=== PATIENT | male | born 1965 | race Caucasian/White ===

== ENCOUNTER → 2017-01-15 | Outpatient (CLI) | payer OTHER ==
[2017-01-15 10:48] LABS: Basophils # (A) 0.1 k/uL (0-0.2); Basophils % (A) 1 %; CH 32.2; CHCM 34.8; Eosinophils # (A) 0.2 k/uL (0-0.7); Eosinophils % (A) 2 %; HCT 46.5 % (39.0-53.0); HDW 2.85; HGB 15.9 gm/dL (13.0-17.5); Luc # (Auto) 0.17; Luc % (Auto) 2; Lymphocytes # (A) 1.7 k/uL (1.0-4.8); Lymphocytes % (A) 19 %; MCH 31.8 pg (25.0-35.0); MCHC 34.2 g/dL (31.0-37.0); MCV 93.1 fL (80.0-100.0); Mean Platelet Volume 7.6; Monocytes # (A) 0.5 k/uL (0-1.0); Monocytes % (A) 5 %; Neutrophils # (A) 6.7 k/uL (1.3-7.7); Neutrophils % (A) 72 %; RDW 13.6 % (11.5-15.5); WBC 9.3 k/uL (3.8-10.6); WBC (Perox) 9.17
[2017-01-15 11:11] LABS: ALT 57 U/L (21-72); AST 27 U/L (17-59); Alkaline Phosphatase 83 U/L (38-126); Anion Gap 8 mmol/L; Blood Urea Nitrogen 18 mg/dL (9-20); Calcium 9.5 mg/dL (8.4-10.2); Carbon Dioxide 30 mmol/L (22-30); Chloride 105 mmol/L (98-107); Cholesterol 149 mg/dL (<200); Glucose 103 mg/dL (74-99); HDL Cholesterol 40 mg/dL (40-60); Non-African American GFR(MDRD) >60 (>60 ml/min/1.73 sqM); Potassium 4.5 mmol/L (3.5-5.1); Sodium 143 mmol/L (137-145); Total Bilirubin 0.6 mg/dL (0.2-1.3); Total Protein 7.1 g/dL (6.3-8.2); Triglycerides 131 mg/dL (<150)
== END | disposition home or self-care (01) ==
LOC: LABWHC1 10:20
PROVIDERS: ATTEND Internal Medicine
DX: I25.10 Atherosclerotic heart disease of native coronary artery without angina pectoris (principal); E78.5 Hyperlipidemia, unspecified; I10 Essential (primary) hypertension
CPT/HCPCS: 36415; 80053; 80061; 84439; 84443; 85025

== ENCOUNTER 2017-08-11 14:20 | Inpatient (IN) | payer BC, OTHER ==
[2017-08-11] MEDS ORDERED: SODIUM CHLORIDE 0.9% 1,000 ML IV STA (14:28)
[2017-08-11] MEDS ORDERED: NITROGLYCERIN SL TABS 0.4 MG TAB SUBLINGUAL STA (14:28)
[2017-08-11] MEDS ORDERED: ASPIRIN 81 MG PO STA (14:28)
[2017-08-11] MEDS ORDERED: DILTIAZEM 125 MG in SODIUM CHLORIDE 0.9% 100 ML IV ONE (14:31)
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
[2017-08-11] MEDS ORDERED: HEPARIN SODIUM,PORCINE 5,000 UNIT/ML 1 ML VIAL IV ONE (14:32)
[2017-08-11] MEDS ORDERED: HEPARIN SODIUM,PORCINE/D5W PMX 25,000 UNIT in DEXTROSE/WATER 1 500ML.BAG IV SCH (14:45)
--- NOTE | 2017-08-11 15:01 | XR ---
EXAMINATION TYPE: XR chest 2V DATE OF EXAM: 08/11/2017 COMPARISON: 08/29/2016 HISTORY: Chest pain TECHNIQUE: Frontal and lateral views of the chest are obtained. FINDINGS: There is no heart failure nor confluent pneumonic infiltrate. Heart size is normal. There are chest leads. Costophrenic angles are clear. IMPRESSION: No active cardiopulmonary disease. No change.
[2017-08-11 15:11] LABS: Basophils # (A) 0.1 k/uL (0-0.2); Basophils % (A) 1 %; CH 31.6; CHCM 34.1; Eosinophils # (A) 0.1 k/uL (0-0.7); Eosinophils % (A) 2 %; HCT 53.2 % (39.0-53.0); HDW 2.65; HGB 17.4 gm/dL (13.0-17.5); Luc % (Auto) 4; Lymphocytes # (A) 2.2 k/uL (1.0-4.8); Lymphocytes % (A) 27 %; MCH 30.5 pg (25.0-35.0); MCHC 32.8 g/dL (31.0-37.0); MCV 93.3 fL (80.0-100.0); Mean Platelet Volume 8.3; Monocytes # (A) 0.6 k/uL (0-1.0); Monocytes % (A) 7 %; Neutrophils # (A) 4.9 k/uL (1.3-7.7); Neutrophils % (A) 60 %; RDW 14.4 % (11.5-15.5); WBC 8.1 k/uL (3.8-10.6)
[2017-08-11 15:25] LABS: INR 1.1 (<1.2); Partial Thromboplastin Time 24.5 sec (22.0-30.0); Prothrombin Time 10.8 sec (9.0-12.0)
[2017-08-11 15:29] LABS: ALT 51 U/L (21-72); AST 28 U/L (17-59); Alkaline Phosphatase 96 U/L (38-126); Anion Gap 12 mmol/L; Blood Urea Nitrogen 18 mg/dL (9-20); Carbon Dioxide 27 mmol/L (22-30); Chloride 101 mmol/L (98-107); Glucose 116 mg/dL (74-99); Magnesium 1.8 mg/dL (1.6-2.3); Non-African American GFR(MDRD) >60 (>60 ml/min/1.73 sqM); Potassium 4.4 mmol/L (3.5-5.1); Sodium 140 mmol/L (137-145); Total Bilirubin 0.7 mg/dL (0.2-1.3); Total Protein 7.8 g/dL (6.3-8.2)
[2017-08-11 15:31] LABS: Creatine Kinase 50 U/L (55-170)
[2017-08-11 15:44] LABS: Creatine Kinase MB 0.6 ng/mL (0.0-2.4); Troponin I <0.012 ng/mL (0.000-0.034)
[2017-08-11] MEDS ORDERED: NITROGLYCERIN SL TABS 0.4 MG TAB SUBLINGUAL PRN (16:19)
[2017-08-11] MEDS ORDERED: ALBUTEROL NEBULIZED 2.5 MG/3 ML INHALATION PRN (16:21)
[2017-08-11] MEDS: NITROGLYCERIN OINT 1 INCH/GM PACKET TOPICAL SCH ×3 (16:38→22:54)
[2017-08-11 18:03] VITALS: BMI 35.4
[2017-08-11] MEDS ORDERED: ACETAMINOPHEN TAB 500 MG TAB PO PRN (18:35)
[2017-08-11] MEDS ORDERED: HYDROcodone/APAP 5-325MG 1 EACH TAB PO PRN (18:35)
[2017-08-11] MEDS ORDERED: ALPRAZolam 0.25 MG TAB PO PRN (18:35)
[2017-08-11] MEDS: SODIUM CHLORIDE 0.9% 1,000 ML IV SCH (19:50)
[2017-08-11] MEDS: PANTOPRAZOLE 40 MG TABLET PO SCH (20:47)
[2017-08-11] MEDS: clonazePAM 0.5 MG TAB PO SCH (20:47)
[2017-08-11] MEDS: ISOSORBIDE MONONITRATE ER 30 MG TAB.ER.24H PO SCH (20:47)
[2017-08-11] MEDS: METOPROLOL TARTRATE 25 MG TAB PO SCH (20:48)
[2017-08-11] MEDS: MONTELUKAST 10 MG TAB PO SCH (20:48)
[2017-08-11] MEDS: LORATADINE 10 MG TAB PO SCH (20:48)
[2017-08-11] MEDS ORDERED: ASPIRIN 81 MG PO SCH (21:00)
[2017-08-11] MEDS ORDERED: CINNAMON 500 MG PO SCH (21:00)
[2017-08-11] MEDS ORDERED: KRILL OIL 300 MG PO SCH (21:00)
[2017-08-11] MEDS ORDERED: ATORVASTATIN 10 MG TAB PO SCH (21:00)
[2017-08-11] MEDS ORDERED: UBIDECARENONE 200 MG PO SCH (21:00)
[2017-08-11 21:49] LABS: Creatine Kinase 40 U/L (55-170)
[2017-08-11] MEDS ORDERED: HEPARIN SODIUM,PORCINE 5,000 UNIT/ML 1 ML VIAL IV PRN (21:57)
[2017-08-11 22:02] LABS: Creatine Kinase MB 0.5 ng/mL (0.0-2.4); Troponin I <0.012 ng/mL (0.000-0.034)
[2017-08-11] MEDS: TEMAZEPAM 15 MG CAP PO PRN (23:45)
[2017-08-12 04:07] LABS: Basophils # (A) 0.1 k/uL (0-0.2); Basophils % (A) 1 %; CHCM 33.1; Eosinophils # (A) 0.2 k/uL (0-0.7); Eosinophils % (A) 3 %; HDW 2.63; HGB 15.1 gm/dL (13.0-17.5); Luc # (Auto) 0.17; Luc % (Auto) 2; Lymphocytes # (A) 2.2 k/uL (1.0-4.8); Lymphocytes % (A) 30 %; MCH 30.7 pg (25.0-35.0); MCHC 31.6 g/dL (31.0-37.0); MCV 97.4 fL (80.0-100.0); Mean Platelet Volume 7.9; Monocytes # (A) 0.5 k/uL (0-1.0); Monocytes % (A) 7 %; Neutrophils # (A) 4.4 k/uL (1.3-7.7); Neutrophils % (A) 58 %; RBC 4.93 m/uL (4.30-5.90); RDW 14.6 % (11.5-15.5); WBC 7.5 k/uL (3.8-10.6); WBC (Perox) 7.76
[2017-08-12 04:27] LABS: Anion Gap 6 mmol/L; Blood Urea Nitrogen 15 mg/dL (9-20); Calcium 8.9 mg/dL (8.4-10.2); Carbon Dioxide 28 mmol/L (22-30); Chloride 105 mmol/L (98-107); Cholesterol 135 mg/dL (<200); Glucose 109 mg/dL (74-99); HDL Cholesterol 33 mg/dL (40-60); Non-African American GFR(MDRD) >60 (>60 ml/min/1.73 sqM); Potassium 4.3 mmol/L (3.5-5.1); Sodium 139 mmol/L (137-145)
[2017-08-12 04:30] LABS: Creatine Kinase 32 U/L (55-170)
[2017-08-12 04:44] LABS: Creatine Kinase MB 0.4 ng/mL (0.0-2.4); Troponin I <0.012 ng/mL (0.000-0.034)
[2017-08-12] MEDS: NITROGLYCERIN OINT 1 INCH/GM PACKET TOPICAL SCH ×4 (05:36→21:49)
[2017-08-12] MEDS: ASPIRIN 325 MG TAB PO SCH (08:46)
[2017-08-12] MEDS: METOPROLOL TARTRATE 25 MG TAB PO SCH ×2 (08:46→21:11)
[2017-08-12] MEDS: LISINOPRIL 20 MG TAB PO SCH (08:46)
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
[2017-08-12] MEDS: APIXABAN 5 MG TAB PO SCH ×2 (12:37→21:23)
--- NOTE | 2017-08-12 12:38 | CONS ---
CONSULTATION DATE OF SERVICE: 08/12/2017. HISTORY: Mr. Dm Martinez is a 52-year-old gentleman with a known history of CAD, who underwent stenting of LAD performed in 3 areas in 2012. He [address] Dr. Angeles in the outpatient setting. He saw him about a month ago, was scheduled to have an elective stress test some time in October. This gentleman is fairly active. He was about almost 45 minutes to an hour north yesterday when he experienced discomfort in the chest, which he first thought was a tingling feeling in the right shoulder area. Then he felt some left anterior chest discomfort and then had more of a numbness in his left upper extremity. With these symptoms he came into the hospital. He was also complaining of some headache and dizzy feeling. He was found to be in atrial fibrillation with a rapid ventricular rate. He was initiated on a Cardizem drip and with this he converted to sinus rhythm. He is now completely asymptomatic, has no symptoms. He is resting comfortably without symptoms. His troponins are normal. EKG revealed a sinus mechanism without acute changes, but initial EKG revealed atrial fib with moderate ventricular rate. The patient also additionally has bronchial asthma and underlying hypertension. He does not have any known prior history of atrial fibrillation. He is resting comfortably without symptoms at the time of my evaluation. PAST MEDICAL HISTORY: 1. CAD with stenting of LAD in 2012 with a patent vessel in 2013 based on a cardiac cath. 2. Hypertension. 3. Hypercholesterolemia. 4. Bronchial asthma. 5. No documented evidence of any CVA or any diabetes. ALLERGIES: None. MEDICATIONS: At home include: 1. Aspirin 81 mg daily. 2. Enalapril 5 mg b.i.d. 3. Imdur 30 mg daily. 4. Singulair 10 mg daily. 5. Simvastatin 20 mg daily. 6. Metoprolol tartrate 25 mg b.i.d. 7. Albuterol inhaler p.r.n. ALLERGIES: None. REVIEW OF SYSTEMS: Unremarkable other than above-mentioned facts, specifically does not have any hematemesis or melena. No fever with chills or cough with expectoration. IMPRESSION: 1. Paroxysmal atrial fibrillation, back in sinus rhythm. 2. History of coronary artery disease with previous percutaneous coronary intervention, presented with chest pain as well. 3. Hypertension. 4. Hyperlipidemia. 5. History of bronchial asthma. RECOMMENDATIONS: I am recommending that for his atrial fibrillation we place him on Eliquis 5 mg b.i.d. I will increase the Lipitor to from 10 to 20 mg daily. We will discontinue IV heparin, increase activity, and if he has no further symptoms I will perform a Lexiscan stress test tomorrow. Based on these findings, we can make further recommendations. I have advised the patient to increase activity and see how he does. We will resume all of his current home medications and increase the dose of atorvastatin from 10 to 20 mg daily. We will proceed with a Lexiscan stress test because he is unable to walk with his ankle issues. I discussed my thoughts in detail with the patient. Thank you very much for the consult. SHAZIA / FATOUMATA: [id number] /
--- NOTE | 2017-08-12 15:09 | PN ---
PROGRESS NOTE DATE OF SERVICE: 08/12/2017 This 52-year-old gentleman, admitted with chest pain and atrial ablation is in normal sinus rhythm. Cardiology is planning a stress test tomorrow. No chest pain. No palpitations. No fever. PHYSICAL EXAM: Alert and oriented x3. Pulse is 61, blood pressure 110/64, respiration 16, temperature 98.6, pulse ox 98% on room air. HEENT: Conjunctivae normal. Oral mucosa moist. Neck is no jugular venous distention. No carotid bruit. No lymph node enlargement. CARDIOVASCULAR: S1, S2. No S3, no S4. RESPIRATORY: Breath sounds diminished in the bases. No rhonchi. No crackles. ABDOMEN: Soft, nontender. LEGS: No edema. NERVOUS SYSTEM: No focal systems. LAB: CBC within normal limits. ABG noted. ASSESSMENT: 1. Chest pain, possible unstable angina. 2. Atrial fibrillation with fast ventricular rate converted to normal sinus rhythm. 3. History of asthma, chronic obstructive pulmonary disease. 4. History of Coronary artery disease and stent. 5. Hypertension. 6. Hyperlipidemia. 7. Gastroesophageal reflux disease. 8. History of degenerative joint disease, ankle. RECOMMENDATIONS AND DISCUSSION: In this 52-year-old gentleman who presented with multiple complex medical issues, we will monitor the patient closely. Continue the current management and symptomatic treatment. Continue with antiplatelet agents. Continue with Eliquis which has been initiated by Cardiology. Otherwise continue to monitor. Further recommendations to follow. MMODL / IJN: [id number] /
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
[2017-08-12] MEDS: SODIUM CHLORIDE 0.9% 1,000 ML IV SCH (20:55)
[2017-08-12] MEDS: ISOSORBIDE MONONITRATE ER 30 MG TAB.ER.24H PO SCH (21:11)
[2017-08-12] MEDS: ATORVASTATIN 20 MG TAB PO SCH (21:11)
[2017-08-12] MEDS: LORATADINE 10 MG TAB PO SCH (21:11)
[2017-08-12] MEDS: PANTOPRAZOLE 40 MG TABLET PO SCH (21:12)
[2017-08-12] MEDS: MONTELUKAST 10 MG TAB PO SCH (21:12)
[2017-08-12] MEDS: clonazePAM 0.5 MG TAB PO SCH (21:23)
[2017-08-12] MEDS: TEMAZEPAM 15 MG CAP PO PRN (22:25)
[2017-08-13] MEDS ORDERED: REGADENOSON 0.4 MG/5 ML SYRINGE IV ONE (07:00)
[2017-08-13] MEDS ORDERED: AMINOPHYLLINE 500 MG/20 ML VIAL IV PRN (07:00)
[2017-08-13] MEDS: ASPIRIN 325 MG TAB PO SCH (08:32)
[2017-08-13] MEDS: APIXABAN 5 MG TAB PO SCH ×2 (08:32→22:08)
[2017-08-13] MEDS: LISINOPRIL 20 MG TAB PO SCH (08:32)
[2017-08-13] MEDS: METOPROLOL TARTRATE 25 MG TAB PO SCH ×2 (08:32→22:13)
[2017-08-13] MEDS: NITROGLYCERIN OINT 1 INCH/GM PACKET TOPICAL SCH ×3 (11:48→23:36)
--- NOTE | 2017-08-13 12:33 | PN ---
PROGRESS NOTE Mr. Martinez presented yesterday with atrial fib, had a chest pain that was atypical, had negative troponins. I recommended that he should have a Lexiscan stress test since he could not walk and also initiated him on initiated him on Eliquis. However, apparently Dr. Rivas has seen him and he felt he should have a heart catheterization, but he did not communicate with me. The patient now wishes to have a cardiac cath and he wants to speak to Dr. Angeles. We will therefore feed him and we will not do the stress test at his request and I will await input from Dr. Angeles. He has not had any angina. EKG does not reveal any evidence of ischemia. He is resting comfortably without symptoms. MMODL / IJN: [id number] /
[2017-08-13] MEDS ORDERED: SODIUM CHLORIDE 0.9% 1,000 ML in EMPTY BAG 1 BAG IV ONE (13:16)
[2017-08-13] MEDS ORDERED: ASPIRIN 325 MG TAB PO STA (13:16)
[2017-08-13] MEDS ORDERED: ALPRAZolam 0.25 MG TAB PO PRN (13:16)
[2017-08-13] MEDS ORDERED: NITROGLYCERIN SL TABS 0.4 MG TAB SUBLINGUAL PRN (13:16)
[2017-08-13] MEDS ORDERED: ATORVASTATIN 20 MG TAB PO STA (13:16)
[2017-08-13] MEDS ORDERED: ALPRAZolam 0.5 MG TAB PO PRN (13:16)
[2017-08-13] MEDS: SODIUM CHLORIDE 0.9% 1,000 ML IV SCH (14:35)
--- NOTE | 2017-08-13 14:55 | PN ---
PROGRESS NOTE This is a 52-year-old male who has a history of coronary artery disease. The patient has history of coronary artery disease. The patient is status post stent x3. These were done by Dr. Angeles a few years back. He presents to the hospital with chest pain. He was driving and then developed substernal chest discomfort. It was getting worse as he continued to drive. It lasted about 40 minutes. It radiated to his left shoulder and left neck area. In the ER, he developed the palpitations. He also was noted to be in atrial fibrillation with RVR. His cardiac panel was negative. The patient is scheduled for cardiac catheterization tomorrow. The patient feels relatively comfortable today. No chest pain today as we speak. Current vital signs are reviewed. Temperature is 98, heart rate 68, respiratory 16, blood pressure 154/82, mean 99, room air saturation 97%. Appears no acute distress. HEENT examination is grossly unremarkable. Mucous membranes are moist. No oral lesions. Neck is supple. Full range of motion. No adenopathy or thyromegaly. Neck veins are flat. Cardiovascular examination reveals regular rhythm rate. S1, S2 normal. No S3, S4, or murmur. Lungs are relatively clear. Breath sounds equal. No masses or tenderness. Lungs are clear. Breath sounds equal. No wheezes, rhonchi, or crackles. Abdomen soft. Bowel sounds heard. No mass or tenderness. Extremities are intact. No cyanosis, clubbing, or edema. SKIN: Without rash. Neurologic examination is brief but nonfocal. LABORATORY DATA: Lab data is reviewed. CBC is normal. Electrolytes normal. ASSESSMENT: 1. Chest pain, rule out recurrent coronary disease. 2. History of coronary artery disease with previous stent placement. PLAN: Catheterization is planned for tomorrow. We will continue to follow. Medications, x- rays, labs are all reviewed. MMODL / IJN: [id number] /
--- NOTE | 2017-08-13 18:30 | PN ---
PROGRESS NOTE DATE OF SERVICE: 08/13/2017 This 52 -year-old gentleman admitted with chest pain. is being closely monitored. Myocardial infarction ruled out. Cardiology is planning cardiac cath tomorrow by Dr. Angeles. No chest pain. No palpitations. No fever. EXAM: Alert and oriented times three. Pulse 63, blood pressure 130/76 , respiratory rate 16, temperature 97.2, pulse ox 94% room air. HEENT: Conjunctivae normal. Neck: No jugular venous distention. CARDIOVASCULAR: S1, S2. Respiratory: Breath sounds diminished in the bases. No rhonchi and no crackles. Abdomen is soft, nontender. Legs are no edema, no swelling. Central nervous system: No focal deficits. LABORATORY DATA: Glucose 101. Other labs noted. ASSESSMENT: 1. Chest pain possible unstable angina. 2. Atrial fibrillation with fast ventricular rate, converted to normal sinus rhythm. 3. History of asthma, chronic obstructive pulmonary disease. 4. History of coronary artery disease, stent. 5. Hypertension. 6. Hyperlipidemia. 7. Gastroesophageal reflux disease. 8. Degenerative joint disease ankle. RECOMMENDATIONS AND DISCUSSION: Recommend to continue current medications, management and symptomatic treatment. Otherwise closely monitor. Follow closely with cardiology, possible cardiac catheterization. Further recommendations to follow. MMODL / IJN: [id number] /
[2017-08-13] MEDS: clonazePAM 0.5 MG TAB PO SCH (22:05)
[2017-08-13] MEDS: ATORVASTATIN 20 MG TAB PO SCH (22:05)
[2017-08-13] MEDS: ISOSORBIDE MONONITRATE ER 30 MG TAB.ER.24H PO SCH (22:06)
[2017-08-13] MEDS: MONTELUKAST 10 MG TAB PO SCH (22:06)
[2017-08-13] MEDS: LORATADINE 10 MG TAB PO SCH (22:06)
[2017-08-13] MEDS: PANTOPRAZOLE 40 MG TABLET PO SCH (22:06)
[2017-08-14 02:13] VITALS: RESP 18
[2017-08-14] MEDS: NITROGLYCERIN OINT 1 INCH/GM PACKET TOPICAL SCH ×2 (06:21→15:41)
[2017-08-14] MEDS: LISINOPRIL 20 MG TAB PO SCH (06:23)
[2017-08-14] MEDS: METOPROLOL TARTRATE 25 MG TAB PO SCH (06:23)
[2017-08-14] MEDS: ASPIRIN 325 MG TAB PO SCH (06:23)
[2017-08-14] MEDS: APIXABAN 5 MG TAB PO SCH (07:54)
[2017-08-14] MEDS ORDERED: SODIUM CHLORIDE 0.9% 1,000 ML IV ONE (12:28)
[2017-08-14] MEDS ORDERED: MIDAZOLAM 2 MG/2 ML VIAL IVP ONE (12:43)
--- NOTE | 2017-08-14 12:43 | PN ---
PROGRESS NOTE Mr. Martinez is doing well this morning. He has no chest pain. EKG was unremarkable. He is going to have a cardiac cath that will be performed by Dr. Angeles today. Vital signs are stable. S1 and S2 heard normally. Lungs are clear. Abdomen and lower extremity exam is unchanged. MMODL / IJN: [id number] /
[2017-08-14] MEDS ORDERED: LIDOCAINE 2% INJ 20 MG/ML SQ ONE (12:45)
[2017-08-14] MEDS ORDERED: VERAPAMIL SYRINGE (5 MG/10 ML) INTRAARTER ONE (12:47)
[2017-08-14] MEDS ORDERED: HEPARIN SODIUM 1,000 UN/ML (10ML VL) IV ONE ×2 (12:47→12:57)
[2017-08-14] MEDS ORDERED: HYDROmorphone 2 MG/ML 1 ML SYRINGE IVP ONE (12:48)
[2017-08-14] MEDS ORDERED: IOHEXOL 350 MG/ML 125ML BOTTLE INJ ONE (13:01)
[2017-08-14] MEDS ORDERED: RX INFO: IV CONTRAST WAS GIVEN 1 EACH MISC MISCELLANE PRN (13:07)
[2017-08-14] MEDS ORDERED: SODIUM CHLORIDE 0.9% 1,000 ML IV SCH (13:15)
--- NOTE | 2017-08-14 13:47 | LTR ---
August 14, 2017 RE: Dm Buenoley Dear Dr. Rivas: Mr. Dm Martinez underwent a heart catheterization and that revealed intermediate nonobstructive disease involving the mid RCA, which seems to be unchanged compared to before with patent stents in the LAD. Maximized medical treatment is recommended at this point of time. Thank you for allowing me to participate in his care. Please do not hesitate to call if you have any question or concern. Sincerely, MMOLGAL / IJN: [id number] /
--- NOTE | 2017-08-14 13:47 | CC ---
CARDIAC CATHETERIZATION REPORT DATE OF SERVICE: August 14, 2017 PERFORMING PHYSICIAN: Dwaine Angeles MD, automatic centrifugal station operator. PROCEDURE PERFORMED: Selective right and left coronary angiogram. INDICATION: This is a pleasant 52-year-old gentleman who is known to have coronary artery disease and prior stenting of the LAD, presented to the hospital complaining of chest discomfort subsequently followed by heart racing and fluttering and the patient was found to be in atrial fibrillation with RVR, which is was new onset AFib for him. He was experiencing chest discomfort before the episode. In view of his history of coronary artery disease, a heart catheterization was recommended. APPROACH: Right radial artery. COMPLICATION: None. LEVEL OF SEDATION: Moderate with sedation length of 21 minutes. PROCEDURE DESCRIPTION: After obtaining informed consent, the patient was brought to cardiac lab instructor. The right radial artery was cannulated using micropuncture technique, the micropuncture wire passed easily then I placed a 6-Guyanese sheath in the right radial artery. Subsequently I did give the patient 2 mg of verapamil IA and a total of 10,000 units of heparin IV. After that, I did selective right and left coronary angiogram using JR4 and JL3 0.5 catheters. The procedure was completed without any complication. SELECTIVE CORONARY ANGIOGRAM: 1. Right coronary artery is a large caliber vessel and it is a dominant vessel. The proximal RCA appeared to be angiographically normal. The mid RCA has a lesion appeared to be in the range of 50% and seems to be unchanged compared to before. The RCA distally appeared to have mild disease only and bifurcates into PDA and PLV branches. Both are angiographically normal. 2. The left main is angiographically normal. It bifurcates into the left circumflex and left anterior descending artery. 3. The left circumflex is a large caliber vessel and it is a nondominant vessel. The proximal left circumflex appeared to be angiographically normal and gives rise into a large first OM branch which has disease in the proximal portion about 50%. Also, the proximal left circumflex gives rise into a second OM branch which is small to medium caliber vessel and seems to be angiographically normal. The mid left circumflex is normal and gives rise into the 3rd OM branch which seems to be angiographically normal before the circumflex continues as a small-caliber vessel in the AV groove. 4. The left anterior descending artery: The proximal LAD has mild disease only and gives rise into a medium-sized diagonal branch which seems to be angiographically normal. The mid LAD is stented and the stent is patent. The mid LAD gives rise into another diagonal branch which seems to be angiographically normal. The LAD in the mid to distal portion is stented and the stent is patent as well. CONCLUSION: 1. Intermediate nonobstructive disease involving the mid RCA, seems to be unchanged compared to before. 2. Intermediate disease involving the left circumflex. 3. Patent stents in the left anterior descending artery. POSTPROCEDURE MANAGEMENT: 1. Maximize medical treatment. 2. Follow up with the patient. MMODL / IJN: [id number] /
--- NOTE | 2017-08-14 14:45 | P.PN ---
Subjective Progress Note Date: 08/14/17 Principal diagnosis: Unstable angina, A. fib with RVR induced by ischemia This is a 52-year-old white male whom I see on a regular basis in my office for underlying coronary artery disease, and patient is status post stents [address] Marie few years ago. His last stent was in 2012. His last cardiac catheterization was on 05/20/2014. This showed patent stents in the proximal mid and distal LAD, and there was moderate nonobstructive coronary artery disease involving the mid RCA as well as the proximal ramus intermedius. Yesterday, while driving, the patient developed sudden onset of substernal chest pain. His pain was gradually getting worse, and he continued to drive. His pain lasted for almost 40 minutes. However later on it became associated with radiation to the left shoulder and left neck area. And he felt that his left arm was numb. Patient drove himself to the ER while he was having chest pain. Upon arrival to the steps of the ER, patient developed palpitations. Upon initial evaluation, patient was noted to be in A. fib and RVR. His cardiac panel was negative, troponins/3 series were negative. Patient received Cardizem, and he was placed on Cardizem drip, heparin drip, admitted to the hospital, cardiology consultation was initiated, and I was asked to see him on consultation for his underlying history of bronchial asthma. His asthma is relatively stable at this point, no cough no wheezing no shortness of breath. Shortly after his rate was controlled, patient became pain-free. Presently during my evaluation, the patient is asymptomatic. Remains on Cardizem drip and heparin drip at this point. Patient was supposed to have a cardiac stress test in October as recommended by Dr. Marie. However considering the new symptoms, patient may have to be considered for cardiac catheterization again. That decision will be left to Dr. Marie to make. On 08/14/2017 patient is seen in follow-up on selective care, he is awaiting heart catheterization today. He is awake alert, in no acute distress. Heart cath revealed intermediate nonobstructive disease involving the mid RCA, unchanged from previous heart cath. Intermediate disease involving the left circumflex. Cardiology recommendation is to maximize medical treatment. Patient denies any chest pain, shortness of breath or palpitations. Lung sounds are clear, no rhonchi no wheezes, rales noted. He is on room air with O2 sat at 97%. He has been afebrile. He has been anticoagulated on Apixaban. Objective - Vital Signs Vital signs: Vital Signs Temp 97.6 F 08/14/17 08:00 Pulse 55 L 08/14/17 08:00 Resp 18 08/14/17 08:00 BP 116/65 08/14/17 08:00 Pulse Ox 97 08/14/17 08:00 Intake & Output 08/13/17 08/14/17 08/14/17 18:59 06:59 18:59 Intake Total 120 175 Output Total 500 Balance -380 175 Weight 111.7 kg Intake: IV 175 Oral 120 Output: Urine 500 Other: Voiding Method Toilet Toilet # Voids 2 2 # Bowel Movements 0 - Exam GENERAL EXAM: Alert, active, comfortable in no apparent distress. HEAD: Normocephalic/atraumatic. EYES: Normal reaction of pupils, equal size. Conjunctiva pink, sclera white. NOSE: Clear with pink turbinates. THROAT: No erythema or exudates. NECK: No masses, no JVD, no thyroid enlargement, no adenopathy. CHEST: No chest wall deformity. Symmetrical expansion. LUNGS: Equal air entry with no crackles, wheeze, rhonchi or dullness. CVS: Regular rate and rhythm, normal S1 and S2, no gallops, no murmurs, no rubs ABDOMEN: Soft, nontender. No hepatosplenomegaly, normal bowel sounds, no guarding or rigidity. EXTREMITIES: No clubbing, no edema, no cyanosis, 2+ pulses and upper and lower extremities. MUSCULOSKELETAL: Muscle strength and tone normal. SPINE: No scoliosis or deformity SKIN: No rashes CENTRAL NERVOUS SYSTEM: Alert and oriented -3. No focal deficits, tone is normal in all 4 extremities. PSYCHIATRIC: Alert and oriented -3. Appropriate affect. Intact judgment and insight. - Labs CBC & Chem 7: 08/12/17 03:46 08/12/17 03:46 Assessment and Plan Plan: Assessment and Plan Assessment: Impression: 1 unstable angina, patient will likely need further cardiac workup including a cardiac catheterization. Patient is known to have history of coronary artery disease and previous stent placement 3, last stent was placed in 2012, last cardiac catheterization was in 2013. Heart cath from 08/14/2017 showed intermediate nonobstructive disease involving the RCA and the left circumflex. The mid LAD stent was patent. Recommendation was made by cardiology to maximize medical treatment. 2 atrial fibrillation with RVR, likely induced by ischemia, or could be the other way around. That is the patient is having ischemic changes related to A. fib/RVR. 3 multiple medical problems including mild intermittent bronchial asthma which is presently stable, GERD without esophagitis, hyperlipidemia, hypertension, and history of prostate disorder. History of osteoarthritis and previous orthopedic surgeries done by Dr. Renee. Patient had right ankle and right knee surgeries. Recommendation: Patient underwent heart catheterization with Dr. Angeles which showed intermediate disease in the RCA and the left circumflex, the mid LAD stent was patent. Patient's medical treatment will be maximized. Possible discharge home tomorrow. I performed a history & physical examination of the patient and discussed their management with my nurse practitioner, Manisha Atkins. I reviewed the nurse practitioner's note and agree with the documented findings and plan of care. Lung sounds are clear. The findings and the impression was discussed with the patient. I attest to the documentation by the nurse practitioner. Time with Patient: Less than 30
[2017-08-14] MEDS: SODIUM CHLORIDE 0.9% 1,000 ML IV SCH (15:42)
--- NOTE | 2017-08-14 16:47 | P.DS ---
Providers Date of admission: 08/11/17 16:19 Attending physician: Alec Chaudhry Consults: 08/11/17 16:19 Consult Physician Urgent Consulting Provider: Cyril Boyer Consult Reason/Comments: Chest pain, new onset A. fib Do you want consulting provider notified?: Yes 08/11/17 16:59 Consult Physician Routine Consulting Provider: Ganesh Rivas Consult Reason/Comments: Chest pain, A. fib Do you want consulting provider notified?: Yes Primary care physician: Ganesh Rivas Hospital Course: Patient was admitted for chest pain, patient underwent cardiac original which did not show any significant coronary atherosclerotic occlusive disease that can be stented and patient is cleared for discharge and patient is being discharged today. Patient is on anticoagulations for atrial fibrillation which will be continued. PHYSICAL EXAMINATION: GENERAL: The patient is alert and oriented x3, not in any acute distress. Well developed, well nourished. HEENT: Pupils are round and equally reacting to light. EOMI. No scleral icterus. No conjunctival pallor. Normocephalic, atraumatic. No pharyngeal erythema. No thyromegaly. CARDIOVASCULAR: S1 and S2 present. No murmurs, rubs, or gallops. PULMONARY: Chest is clear to auscultation, no wheezing or crackles. ABDOMEN: Soft, nontender, nondistended, normoactive bowel sounds. No palpable organomegaly. MUSCULOSKELETAL: No joint swelling or deformity. EXTREMITIES: No cyanosis, clubbing, or pedal edema. NEUROLOGICAL: Gross neurological examination did not reveal any focal deficits. SKIN: No rashes. For all his rest of the chronic medical problems and management in the hospital please up at the progress note from Dr. Chaudhry from yesterday Patient Condition at Discharge: Stable Plan - Discharge Summary Discharge Rx Participant: No New Discharge Prescriptions: New Apixaban [Eliquis] 5 mg PO BID #60 tab Lisinopril [Zestril] 20 mg PO DAILY #30 tab Continue clonazePAM [KlonoPIN] 1.5 mg PO HS Simvastatin [Zocor] 20 mg PO HS Cetirizine HCl 10 mg PO HS Isosorbide Mononitrate [Imdur] 30 mg PO HS Metoprolol Tartrate [Lopressor] 25 mg PO BID Montelukast [Singulair] 10 mg PO HS Aspirin 81 mg PO HS Ubidecarenone [Coq-10] 200 mg PO BID Krill Oil 300 mg PO HS Cinnamon 500 mg PO BID Esomeprazole Magnesium [NexIUM] 20 mg PO HS Albuterol Inhaler [Ventolin Hfa Inhaler] 2 puff INHALATION RT-Q6H PRN PRN Reason: Shortness Of Breath Nitroglycerin Sl Tabs [Nitrostat] 0.4 mg PO Q5M PRN PRN Reason: Chest Pain Discontinued Enalapril [Vasotec] 5 mg PO BID Discharge Medication List Aspirin 81 mg PO HS 02/20/14 [History] Cetirizine HCl 10 mg PO HS 02/20/14 [History] Cinnamon 500 mg PO BID 02/20/14 [History] Isosorbide Mononitrate [Imdur] 30 mg PO HS 02/20/14 [History] Krill Oil 300 mg PO HS 02/20/14 [History] Metoprolol Tartrate [Lopressor] 25 mg PO BID 02/20/14 [History] Montelukast [Singulair] 10 mg PO HS 02/20/14 [History] Simvastatin [Zocor] 20 mg PO HS 02/20/14 [History] Ubidecarenone [Coq-10] 200 mg PO BID 02/20/14 [History] clonazePAM [KlonoPIN] 1.5 mg PO HS 02/20/14 [History] Esomeprazole Magnesium [NexIUM] 20 mg PO HS 05/19/14 [History] Albuterol Inhaler [Ventolin Hfa Inhaler] 2 puff INHALATION RT-Q6H PRN 04/24/16 [ History] Nitroglycerin Sl Tabs [Nitrostat] 0.4 mg PO Q5M PRN 04/24/16 [History] Apixaban [Eliquis] 5 mg PO BID #60 tab 08/13/17 [Rx] Lisinopril [Zestril] 20 mg PO DAILY #30 tab 08/13/17 [Rx] Follow up Appointment(s)/Referral(s): Ganesh Rivas MD [Primary Care Provider] - 3 Days Ambulatory/Diagnostic Orders: Complete Blood Count w/diff [LAB.AMB] Location: Determined By Patient Activity/Diet/Wound Care/Special Instructions: Stress test pending. Confirm final DC recommendations and Cardiology follow-up appointment prior to discharge.
[2017-08-14 18:31] VITALS: TEMP 97.4
[2017-08-14 18:34] VITALS: BP 122/71; PULSE 75
== END 2017-08-14 19:11 | disposition home or self-care (01) | DRG 287 ==
LOC: EC 14:20 → 6SEL 16:19
PROVIDERS: ADMIT Hospitalist; ATTEND Hospitalist
PROC: B2111ZZ Fluoroscopy of Multiple Coronary Arteries using Low Osmolar Contrast (ICD-10-PCS; 2017-08-14)
PROC: 4A023N7 Measurement of Cardiac Sampling and Pressure, Left Heart, Percutaneous Approach (ICD-10-PCS; principal; 2017-08-14 13:25)
DX: I25.110 Atherosclerotic heart disease of native coronary artery with unstable angina pectoris (principal); M50.20 Other cervical disc displacement, unspecified cervical region; I10 Essential (primary) hypertension; E78.5 Hyperlipidemia, unspecified; I48.0 Paroxysmal atrial fibrillation; J44.9 Chronic obstructive pulmonary disease, unspecified; K21.9 Gastro-esophageal reflux disease without esophagitis; M19.079 Primary osteoarthritis, unspecified ankle and foot; N42.9 Disorder of prostate, unspecified; J45.20 Mild intermittent asthma, uncomplicated; K57.90 Diverticulosis of intestine, part unspecified, without perforation or abscess without bleeding; K58.9 Irritable bowel syndrome, unspecified; L30.9 Dermatitis, unspecified; Z79.82 Long term (current) use of aspirin; Z79.899 Other long term (current) drug therapy; Z95.5 Presence of coronary angioplasty implant and graft; Z96.651 Presence of right artificial knee joint
CPT/HCPCS: 36415; 71020; 80048; 80053; 80061; 82550; 82553; 83735; 84443; 84484; 85025; 85379; 85610; 85730; 93005; 93458; 94760; 96365; 96366; 96368; 96376; 99291

== ENCOUNTER → 2018-01-08 | Outpatient (CLI) | payer BC ==
[2018-01-08 10:24] LABS: ALT 37 U/L (21-72); AST 24 U/L (17-59); Albumin 3.9 g/dL (3.5-5.0); Alkaline Phosphatase 64 U/L (38-126); Anion Gap 10 mmol/L; Blood Urea Nitrogen 15 mg/dL (9-20); Calcium 9.2 mg/dL (8.4-10.2); Carbon Dioxide 31 mmol/L (22-30); Chloride 103 mmol/L (98-107); Cholesterol 136 mg/dL (<200); Glucose 104 mg/dL (74-99); HDL Cholesterol 28 mg/dL (40-60); LDL Cholesterol,Calculated 77 mg/dL (0-99); Potassium 4.2 mmol/L (3.5-5.1); Sodium 144 mmol/L (137-145); Total Bilirubin 0.6 mg/dL (0.2-1.3); Total Protein 6.5 g/dL (6.3-8.2); Triglycerides 155 mg/dL (<150)
== END | disposition home or self-care (01) ==
LOC: LABWHC1 09:12
PROVIDERS: ATTEND Internal Medicine
DX: E78.5 Hyperlipidemia, unspecified (principal); I10 Essential (primary) hypertension
CPT/HCPCS: 36415; 80053; 80061

== ENCOUNTER 2018-04-26 08:15 | Emergency (ER) | payer BC ==
[2018-04-26 08:23] VITALS: RESP 18; TEMP 98.3
[2018-04-26] MEDS ORDERED: SODIUM CHLORIDE 0.9% 1,000 ML IV STA (08:32)
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
[2018-04-26 09:07] LABS: Appearance,Urine Clear (Clear); Bilirubin,Urine Negative (Negative); Blood,Urine Negative (Negative); Color,Urine Yellow; Glucose,Urine (UA) Negative (Negative); Ketones,Urine Negative (Negative); Leukocyte Esterase,Urine Negative (Negative); Nitrite,Urine Negative (Negative); Protein,Urine Negative (Negative); Specific Gravity,Urine 1.016 (1.001-1.035); Urobilinogen,Urine <2.0 mg/dL (<2.0)
[2018-04-26 09:09] LABS: Basophils % (A) 0 %; Eosinophils # (A) 0.1 k/uL (0-0.7); Eosinophils % (A) 1 %; HGB 14.5 gm/dL (13.0-17.5); Lymphocytes # (A) 1.3 k/uL (1.0-4.8); Lymphocytes % (A) 12 %; MCH 30.9 pg (25.0-35.0); MCHC 33.8 g/dL (31.0-37.0); MCV 91.3 fL (80.0-100.0); Mean Platelet Volume 7.8; Monocytes # (A) 0.7 k/uL (0-1.0); Monocytes % (A) 7 %; Neutrophils # (A) 8.4 k/uL (1.3-7.7); Neutrophils % (A) 78 %; Platelet Count 200 k/uL (150-450); RBC 4.71 m/uL (4.30-5.90); RDW 12.8 % (11.5-15.5); WBC 10.7 k/uL (3.8-10.6)
[2018-04-26 09:21] LABS: ALT 36 U/L (21-72); AST 20 U/L (17-59); Albumin 3.9 g/dL (3.5-5.0); Alkaline Phosphatase 55 U/L (38-126); Amylase 53 U/L (30-110); Anion Gap 8 mmol/L; Blood Urea Nitrogen 16 mg/dL (9-20); Carbon Dioxide 30 mmol/L (22-30); Chloride 99 mmol/L (98-107); Glucose 103 mg/dL (74-99); Lipase 75 U/L (23-300); Potassium 4.2 mmol/L (3.5-5.1); Sodium 137 mmol/L (137-145); Total Bilirubin 0.7 mg/dL (0.2-1.3); Total Protein 6.6 g/dL (6.3-8.2)
[2018-04-26 09:53] VITALS: BP 121/67; PULSE 68
[2018-04-26] MEDS ORDERED: ONDANSETRON 4 MG/2 ML VIAL IVP STA (09:54)
[2018-04-26] MEDS ORDERED: MORPHINE SULFATE 4 MG/ML SYRINGE IVP STA (09:54)
--- NOTE | 2018-04-26 10:16 | CT ---
EXAMINATION TYPE: CT abdomen pelvis w con DATE OF EXAM: 04/26/2018 COMPARISON: None HISTORY: Left lower quadrant pain CT DLP: 2390.2 mGycm Automated exposure control for dose reduction was used. TECHNIQUE: Helical acquisition of images was performed from the lung bases through the pelvis. CONTRAST: Performed without Oral Contrast and with IV Contrast, patient injected with 100 mL of Isovue 300. FINDINGS: LUNG BASES: No significant abnormality is appreciated. LIVER/GB: There is a solitary hypoattenuated 4 mm hepatic lesion on series 3 image 21. Otherwise the liver is grossly unremarkable. No cholelithiasis. PANCREAS: No significant abnormality is seen. SPLEEN: No significant abnormality is seen. ADRENALS: There is a 5 mm adrenal gland nodule that is low attenuated fitting diagnostic criteria of a lipid rich adenoma emanating from the lateral limb. Left adrenal gland is unremarkable. KIDNEYS: Wedge-shaped cortical scarring is seen of the right upper pole posteriorly. Otherwise the ki dneys enhance and excrete symmetrically. FREE AIR: No free air is visualized. ADENOPATHY: No greater than 1 cm short axis lymph nodes are seen within the abdomen or pelvis. REPRODUCTIVE ORGANS: Dystrophic central zone calcifications are seen within the nonenlarged prostate gland. URINARY BLADDER: No significant abnormality is seen. OSSEOUS STRUCTURES: Irregularity of the right iliac crest may relate to prior trauma. Nonspecific sc lerotic focus within the right pubic bone as subcentimeter. Minimal degenerative changes of the visua lized spine are noted. BOWEL: There is long segment bowel wall thickening surrounding multiple sigmoid diverticula with phl egmonous changes and fascial thickening. There is no evidence of free air or pericolonic abscess. No proximal dilatation to suggest reactive ileus or obstruction. Small bowel remains nondilated. Termina l ileum is unremarkable. OTHER: Mild calcific atheromatous changes are seen in the abdominal aorta and its branches. Abdominal aorta is of normal course and caliber. IMPRESSION: FINDINGS COMPATIBLE WITH ACUTE UNCOMPLICATED SIGMOID DIVERTICULITIS WITH NO PERICOLONIC FLUID COLLECT ION TO SUGGEST ABSCESS OR PNEUMOPERITONEUM.
== END 2018-04-26 10:50 | disposition home or self-care (01) ==
LOC: EC 08:15
DX: K57.32 Diverticulitis of large intestine without perforation or abscess without bleeding (principal); J44.9 Chronic obstructive pulmonary disease, unspecified; I25.119 Atherosclerotic heart disease of native coronary artery with unspecified angina pectoris; I10 Essential (primary) hypertension; E78.5 Hyperlipidemia, unspecified; Z96.651 Presence of right artificial knee joint; Z95.5 Presence of coronary angioplasty implant and graft; Z79.82 Long term (current) use of aspirin; Z79.899 Other long term (current) drug therapy
CPT/HCPCS: 36415; 80053; 82150; 83690; 85025; 81003; 74177; 99284; 96374; 96375; 96361; J2270; J2405; Q9967

== ENCOUNTER → 2018-08-27 | Outpatient (CLI) | payer BC ==
[2018-08-27 17:49] LABS: Appearance,Urine Clear (Clear); Basophils % (A) 1 %; Bilirubin,Urine Negative (Negative); Blood,Urine Negative (Negative); Color,Urine Yellow; Eosinophils # (A) 0.2 k/uL (0-0.7); Eosinophils % (A) 3 %; Glucose,Urine (UA) Negative (Negative); HCT 42.6 % (39.0-53.0); Ketones,Urine Negative (Negative); Leukocyte Esterase,Urine Negative (Negative); Lymphocytes # (A) 2.3 k/uL (1.0-4.8); Lymphocytes % (A) 34 %; MCH 32.2 pg (25.0-35.0); MCHC 35.3 g/dL (31.0-37.0); MCV 91.1 fL (80.0-100.0); Mean Platelet Volume 7.6; Monocytes # (A) 0.4 k/uL (0-1.0); Monocytes % (A) 6 %; Neutrophils # (A) 3.7 k/uL (1.3-7.7); Neutrophils % (A) 54 %; Nitrite,Urine Negative (Negative); PH, Urine 5.5 (5.0-8.0); Platelet Count 184 k/uL (150-450); Protein,Urine Negative (Negative); RBC 4.68 m/uL (4.30-5.90); RDW 13.1 % (11.5-15.5); Urobilinogen,Urine <2.0 mg/dL (<2.0); WBC 6.8 k/uL (3.8-10.6)
[2018-08-27 19:01] LABS: Erythrocyte Sedimentation Rate 12 mm/hr (0-15)
[2018-08-28 03:40] LABS: Parathyroid Hormone Intact 62.9 pg/mL (14.0-72.0)
[2018-08-28 04:45] LABS: Protein, Total 6.4 g/dL (6.2-8.2); Rheumatoid Factor 8 IU/mL (0-15); Streptolysin O Ab(ASO) 51 IU/mL (0-200)
[2018-08-28 04:54] LABS: Albumin 4.3 g/dL (3.80-4.90); Albumin/Globulin Ratio 2.05 (1.20-2.10); Anion Gap 7.2 mmol/L (4.00-12.00); C Reactive Protein 1.4 mg/dL (0.0-0.8); Calcium 9.5 mg/dL (8.7-10.3); Carbon Dioxide 28.8 mmol/L (21.6-31.8); Cyclic Citrullinated Pep IgG NEGATIVE (NEGATIVE); Globulin 2.1 g/dL (2.1-3.7); Phosphorus 4.1 mg/dL (2.4-5.1); Potassium 4.1 mmol/L (3.5-5.5); Total Bilirubin 0.3 mg/dL (0.3-1.2); Total Protein 6.4 g/dL (6.2-8.2); Uric Acid 6.1 mg/dL (3.7-8.7); Vitamin D 25 Hydroxy 11.3 ng/mL (30.0-100.0)
[2018-08-28 13:05] LABS: Gamma Globulin 0.86 g/dL (0.70-1.50)
[2018-08-28 21:16] LABS: Hemoglobin A1C 5.3 % (4.0-6.0)
[2018-08-29 04:30] LABS: Angiotensin-1 Converting Enz. 10 U/L (8-52)
[2018-08-29 11:28] LABS: HLA B27 NEGATIVE
[2018-08-29 13:54] LABS: Hepatits C Virus RNA Not detected (Not detected); Hepatits C Virus RNA, Quant <12 IU/mL (<12); LOG HCV IU/mL <1.08 (<1.08)
== END | disposition home or self-care (01) ==
LOC: LABWHC1 16:56
PROVIDERS: ATTEND Physical Medicine & Rehabilitation
DX: E78.5 Hyperlipidemia, unspecified (principal); I11.9 Hypertensive heart disease without heart failure; M51.36 Other intervertebral disc degeneration, lumbar region; M47.817 Spondylosis without myelopathy or radiculopathy, lumbosacral region; M50.122 Cervical disc disorder at C5-C6 level with radiculopathy; M70.61 Trochanteric bursitis, right hip; M47.22 Other spondylosis with radiculopathy, cervical region; Z79.01 Long term (current) use of anticoagulants
CPT/HCPCS: 36415; 80053; 81003; 82164; 82306; 82310; 82550; 82553; 82607; 82652; 83036; 83516; 83615; 83970; 84100; 84165; 84207; 84425; 84439; 84443; 84550; 85025; 85652; 86038; 86060; 86140; 86200; 86235; 86431; 86618; 86812; 87522

== ENCOUNTER → 2018-09-05 | Outpatient (CLI) | payer BC ==
--- NOTE | 2018-09-05 09:02 | MR ---
EXAMINATION TYPE: MR lumbar spine wo con DATE OF EXAM: 09/05/2018 COMPARISON: NONE HISTORY: Low back pain TECHNIQUE: T1 and T2 axial and sagittal images of the lumbar spine are submitted. FINDINGS: There is no abnormal signal seen within the visualized spinal cord or paraspinal soft tissu es. At L1-2 there is no disc herniation or canal stenosis. No foraminal encroachment. At L2-3 there is no disc herniation or canal stenosis. No foraminal encroachment. At L3-4 there is no disc herniation or canal stenosis. No foraminal encroachment. Mild hypertrophy of the facet joints. At L4-5 there is mild circumferential disc bulging. No foraminal encroachment or canal stenosis. No f ocal herniation. Mild degenerative disc disease noted. At L5-S1 there is loss of disc signal and space. There is advanced facet arthropathy particularly on the right with mild bilateral foraminal encroachment. There is a broad-based central disc bulging wit h mild effacement of thecal sac. IMPRESSION: 1. At L5-S1 there is mild degenerative disc disease. With advanced facet arthropathy particularly on the right results in mild bilateral foraminal encroachment. There is a broad-based central disc bulgi ng with mild effacement of thecal sac and borderline central stenosis. 2. Mild circumferential disc bulging L4-L5 with no canal stenosis or significant foraminal encroachme nt.
== END | disposition home or self-care (01) ==
LOC: RADMRIMAIN 08:06
PROVIDERS: ATTEND Physical Medicine & Rehabilitation
DX: M48.061 Spinal stenosis, lumbar region without neurogenic claudication (principal); M51.26 Other intervertebral disc displacement, lumbar region; M51.37 Other intervertebral disc degeneration, lumbosacral region; M46.96 Unspecified inflammatory spondylopathy, lumbar region; I11.9 Hypertensive heart disease without heart failure; E78.5 Hyperlipidemia, unspecified; Z79.01 Long term (current) use of anticoagulants
CPT/HCPCS: 72148

== ENCOUNTER → 2019-06-06 | Outpatient (CLI) | payer BC ==
[2019-06-06 11:19] LABS: Basophils # (A) 0.1 k/uL (0-0.2); Basophils % (A) 1 %; Eosinophils # (A) 0.2 k/uL (0-0.7); Eosinophils % (A) 2 %; HCT 46.6 % (39.0-53.0); HGB 15.8 gm/dL (13.0-17.5); Lymphocytes # (A) 2.2 k/uL (1.0-4.8); Lymphocytes % (A) 27 %; MCH 31.5 pg (25.0-35.0); MCV 92.8 fL (80.0-100.0); Mean Platelet Volume 8.2; Monocytes # (A) 0.5 k/uL (0-1.0); Monocytes % (A) 6 %; Neutrophils # (A) 5.1 k/uL (1.3-7.7); Neutrophils % (A) 61 %; Platelet Count 208 k/uL (150-450); RBC 5.02 m/uL (4.30-5.90); RDW 14.1 % (11.5-15.5); WBC 8.3 k/uL (3.8-10.6)
[2019-06-06 16:13] LABS: Albumin 4.4 g/dL (3.80-4.90); Albumin/Globulin Ratio 2.2 (1.60-3.17); Anion Gap 8.6 mmol/L (4.00-12.00); BUN/Creat Ratio 14.44 Ratio (12.00-20.00); Calcium 9.5 mg/dL (8.7-10.3); Carbon Dioxide 29.4 mmol/L (21.6-31.8); Chol/HDL Ratio 4.45; LDL Cholesterol,Calculated 101.2 mg/dL (0.0-131.0); Potassium 4.6 mmol/L (3.5-5.5); Total Bilirubin 0.5 mg/dL (0.2-1.2); Total Protein 6.4 g/dL (6.2-8.2); VLDL Calculation 36.8 mg/dL (5.00-40.00)
[2019-06-06 16:21] LABS: T4, Free (Free Thyroxine) 1.1 ng/dL (0.80-1.80)
== END | disposition home or self-care (01) ==
LOC: LABWHC1 10:36
PROVIDERS: ATTEND Internal Medicine
DX: Z00.00 Encounter for general adult medical examination without abnormal findings (principal); E78.5 Hyperlipidemia, unspecified; I10 Essential (primary) hypertension
CPT/HCPCS: 36415; 80053; 80061; 84153; 84439; 84443; 85025

== ENCOUNTER 2020-09-11 18:26 | Observation (INO) | payer OTHER ==
[2020-09-11] MEDS ORDERED: DILTIAZEM DRIP BOLUS FROM BAG 1 MG SOLN IV ONE ×3 (18:55→20:03)
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
[2020-09-11] MEDS: DILTIAZEM 125 MG in SODIUM CHLORIDE 0.9% 100 ML IV SCH (19:13)
--- NOTE | 2020-09-11 19:26 | XR ---
EXAMINATION TYPE: XR chest 2V DATE OF EXAM: 09/11/2020 COMPARISON: NONE HISTORY: Shortness of breath. TECHNIQUE: Frontal and lateral views of the chest are obtained. FINDINGS: There is no focal air space opacity, pleural effusion, or pneumothorax seen. The cardiac silhouette size is borderline enlarged. The osseous structures are intact. IMPRESSION: No acute cardiopulmonary process.
[2020-09-11 19:37] LABS: Basophils # (A) 0.1 k/uL (0-0.2); Basophils % (A) 1 %; Eosinophils # (A) 0.2 k/uL (0-0.7); Eosinophils % (A) 2 %; HCT 48.3 % (39.0-53.0); HGB 16.7 gm/dL (13.0-17.5); Lymphocytes # (A) 3.1 k/uL (1.0-4.8); Lymphocytes % (A) 29 %; MCH 31.5 pg (25.0-35.0); MCHC 34.5 g/dL (31.0-37.0); MCV 91.1 fL (80.0-100.0); Mean Platelet Volume 8.4; Monocytes # (A) 0.6 k/uL (0-1.0); Monocytes % (A) 5 %; Neutrophils # (A) 6.6 k/uL (1.3-7.7); Neutrophils % (A) 61 %; Platelet Count 299 k/uL (150-450); RDW 13.2 % (11.5-15.5); WBC 10.9 k/uL (3.8-10.6)
[2020-09-11 19:49] LABS: D-Dimer 0.31 mg/L FEU (<0.60); Partial Thromboplastin Time 25.2 sec (22.0-30.0); Prothrombin Time 10.8 sec (9.0-12.0)
[2020-09-11 20:06] LABS: Albumin 4.3 g/dL (3.5-5.0); Calcium 9.8 mg/dL (8.4-10.2); Magnesium 1.8 mg/dL (1.6-2.3); Potassium 4.9 mmol/L (3.5-5.1); Total Bilirubin 0.6 mg/dL (0.2-1.3); Total Protein 7.7 g/dL (6.3-8.2)
[2020-09-11] MEDS ORDERED: SODIUM CHLORIDE 0.9% 500 ML 500 ML IV ONE (20:08)
[2020-09-11] MEDS ORDERED: ACETAMINOPHEN TAB 325 MG TAB PO PRN (20:11)
[2020-09-11] MEDS ORDERED: NALOXONE 0.4 MG/ML 1 ML VIAL IV PRN (20:11)
[2020-09-11] MEDS ORDERED: ASPIRIN 81 MG PO SCH (21:00)
[2020-09-11] MEDS ORDERED: ATORVASTATIN 10 MG TAB PO SCH (21:00)
[2020-09-11] MEDS ORDERED: PANTOPRAZOLE 40 MG TABLET PO SCH (21:00)
[2020-09-11] MEDS ORDERED: MONTELUKAST 10 MG TAB PO SCH (21:00)
[2020-09-11] MEDS ORDERED: clonazePAM 0.5 MG TAB PO SCH (21:00)
[2020-09-11] MEDS ORDERED: ISOSORBIDE MONONITRATE ER 30 MG TAB.ER.24H PO SCH (21:00)
[2020-09-11] MEDS: APIXABAN 5 MG TAB PO SCH (21:46)
[2020-09-11] MEDS: METOPROLOL TARTRATE 25 MG TAB PO SCH (21:47)
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
[2020-09-12] MEDS ORDERED: IPRATROPIUM-ALBUTEROL 3 ML NEB INHALATION PRN (01:45)
[2020-09-12] MEDS: DILTIAZEM 125 MG in SODIUM CHLORIDE 0.9% 100 ML IV SCH (03:39)
[2020-09-12 03:41] VITALS: RESP 16
[2020-09-12] MEDS: METOPROLOL TARTRATE 25 MG TAB PO SCH (08:49)
[2020-09-12] MEDS: APIXABAN 5 MG TAB PO SCH (08:49)
[2020-09-12] MEDS ORDERED: lisinopriL 20 MG TAB PO SCH (09:00)
[2020-09-12 11:48] VITALS: BP 103/61; PULSE 62; TEMP 97.8
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
--- NOTE | 2020-09-12 15:07 | P.DS ---
Providers Date of admission: 09/11/20 20:11 Expected date of discharge: 09/12/20 Attending physician: Pavel Rea MD Consults: 09/11/20 20:12 Consult Physician Routine Consulting Provider: Gabriel Rodney Consult Reason/Comments: A flutter with 2:1 conduction Do you want consulting provider notified?: Yes Primary care physician: [facility] Course: 1. Atrial flutter with RVR 2. History of afib on eliquis 3. CAD 4. COPD without exacerbation 55 year old man with history of COPD, CAD, AFib/Flutter presented with palpitations, dyspnea, and diaphoresis and was found to be in RVR with atrial flutter. Patient was started on diltiazem gtt and quickly improved with HRs in the 60s. With controlled heart rates, his symptoms completely resolved. He was seen in consultation with cardiology, who agree that patient is stable to be discharged home. He will follow up with PCP and cardiology as needed. Assessment: Gen: awake, alert HEENT: normocephalic, atraumatic, good hearing acuity, moist mucous membranes Resp: good air exchange, breathing comfortably with no accessory muscle use CVS: good distal perfusion x 4, GI: soft, NTTP, ND : no SPT, no CVAT, alcantar catheter not present MSK: no pitting edema, no clubbing Neuro: non-focal, moving all extremities Psych: cooperative, euthymic mood Patient Condition at Discharge: Good Plan - Discharge Summary Discharge Rx Participant: No New Discharge Prescriptions: Continue clonazePAM [KlonoPIN] 0.75 mg PO HS Simvastatin [Zocor] 20 mg PO HS Cetirizine HCl 10 mg PO HS Isosorbide Mononitrate [Imdur] 30 mg PO HS Metoprolol Tartrate [Lopressor] 25 mg PO BID Montelukast [Singulair] 10 mg PO HS Aspirin 81 mg PO HS Esomeprazole Magnesium [NexIUM] 20 mg PO HS Apixaban [Eliquis] 5 mg PO BID #60 tab lisinopriL [Prinivil] 20 mg PO HS DULoxetine HCL [Cymbalta] 60 mg PO HS Discharge Medication List Aspirin 81 mg PO HS 02/20/14 [History] Cetirizine HCl 10 mg PO HS 02/20/14 [History] Isosorbide Mononitrate [Imdur] 30 mg PO HS 02/20/14 [History] Metoprolol Tartrate [Lopressor] 25 mg PO BID 02/20/14 [History] Montelukast [Singulair] 10 mg PO HS 02/20/14 [History] Simvastatin [Zocor] 20 mg PO HS 02/20/14 [History] clonazePAM [KlonoPIN] 0.75 mg PO HS 02/20/14 [History] Esomeprazole Magnesium [NexIUM] 20 mg PO HS 05/19/14 [History] Apixaban [Eliquis] 5 mg PO BID #60 tab 08/13/17 [Rx] DULoxetine HCL [Cymbalta] 60 mg PO HS 09/11/20 [History] lisinopriL [Prinivil] 20 mg PO HS 09/11/20 [History] Follow up Appointment(s)/Referral(s): Ganesh Rivas MD [Primary Care Provider] - 1-2 days Dwaine Angeles MD [Family Provider] - 2 Weeks Patient Instructions/Handouts: A-fib (Atrial Fibrillation) (ED)
[2020-09-12] MEDS ORDERED: DULoxetine HCL 60 MG CAPSULE.DR PO SCH (21:00)
== END 2020-09-12 15:45 | disposition home or self-care (01) ==
LOC: EC 18:26 → 3SCARD 20:11 → INTOOBSV 20:11 → 3SCARD 21:39 → UNDODISIN 09-12 15:45
PROVIDERS: ADMIT Internal Medicine; ATTEND Internal Medicine
DX: I48.0 Paroxysmal atrial fibrillation (principal); I25.10 Atherosclerotic heart disease of native coronary artery without angina pectoris; J44.9 Chronic obstructive pulmonary disease, unspecified; Z95.5 Presence of coronary angioplasty implant and graft; K21.9 Gastro-esophageal reflux disease without esophagitis; E78.5 Hyperlipidemia, unspecified; I10 Essential (primary) hypertension; N42.9 Disorder of prostate, unspecified; K58.9 Irritable bowel syndrome, unspecified; Z96.653 Presence of artificial knee joint, bilateral; Z98.890 Other specified postprocedural states; Z80.9 Family history of malignant neoplasm, unspecified; I25.2 Old myocardial infarction; Z79.01 Long term (current) use of anticoagulants; Z79.82 Long term (current) use of aspirin; Z79.899 Other long term (current) drug therapy
CPT/HCPCS: 96366 ×3; 93005 ×2; 96376; 96365; 99291; 36415; 85379; 83880; 80053; 83735; 84484 ×2; 85025; 85610; 85730; 71046; G0378 ×2

== ENCOUNTER → 2021-03-08 | Outpatient (CLI) | payer OTHER ==
[2021-03-08 14:26] LABS: African American GFR (CKD) >90 (>60 ml/min/1.73 sqM); Anion Gap 6 mmol/L; Blood Urea Nitrogen 13 mg/dL (9-20); Carbon Dioxide 31 mmol/L (22-30); Chloride 100 mmol/L (98-107); Non-African American GFR(CKD) 87 (>60 ml/min/1.73 sqM); Potassium 4.6 mmol/L (3.5-5.1); Sodium 137 mmol/L (137-145)
[2021-03-08 14:37] LABS: HCT 29.5 % (39.0-53.0); HGB 9.2 gm/dL (13.0-17.5); Hypochromasia Marked; MCH 23.6 pg (25.0-35.0); MCHC 31.3 g/dL (31.0-37.0); MCV 75.3 fL (80.0-100.0); Mean Platelet Volume 8.4; Microcytosis Slight; Platelet Count 288 k/uL (150-450); Poikilocytosis Moderate; RBC 3.92 m/uL (4.30-5.90); WBC 7.5 k/uL (3.8-10.6)
== END | disposition home or self-care (01) ==
LOC: LABPAT 13:22
PROVIDERS: ATTEND Internal Medicine Interventional Cardiology
DX: Z01.812 Encounter for preprocedural laboratory examination (principal); R07.9 Chest pain, unspecified
CPT/HCPCS: 36415; 80051; 82565; 84520; 85027

== ENCOUNTER → 2021-03-15 | Outpatient (CLI) | payer OTHER ==
[2021-03-15 19:23] LABS: Basophils # (A) 0.06 X 10*3/uL (0.00-0.10); Basophils % (A) 0.9 %; Eosinophils # (A) 0.15 X 10*3/uL (0.04-0.35); Eosinophils % (A) 2.1 %; HGB 8.9 g/dL (13.0-17.0); Lymphocytes # (A) 1.93 X 10*3/uL (0.90-5.00); Lymphocytes % (A) 27.5 %; MCH 22.4 pg (27.0-32.0); MCHC 27.8 g/dL (32.0-37.0); MCV 80.6 fL (80.0-97.0); Mean Platelet Volume 11.4 fL (9.5-12.2); Monocytes % (A) 8.5 %; Neutrophils # (A) 4.26 X 10*3/uL (1.80-7.70); Neutrophils % (A) 60.6 %; Platelet Count 316 X 10*3/uL (140-440); RBC 3.97 X 10*6/uL (4.40-5.60); RDW 16.4 % (11.5-14.5); WBC 7.03 X 10*3/uL (4.50-10.00)
[2021-03-15 22:42] LABS: Folate, Serum 2.9 ng/mL
[2021-03-15 22:54] LABS: % Iron Saturation 67.61 (15.00-50.00); African American GFR (CKD) 96.4 (60.0-200.0); Albumin 4.3 g/dL (3.80-4.90); Albumin/Globulin Ratio 1.65 (1.60-3.17); Anion Gap 8.4 mmol/L (4.00-12.00); Calcium 8.8 mg/dL (8.7-10.3); Carbon Dioxide 26.6 mmol/L (21.6-31.8); Globulin 2.6 g/dL (1.6-3.3); Non-African American GFR(CKD) 83.2 (60.0-200.0); Potassium 4.5 mmol/L (3.5-5.5); Total Bilirubin 0.3 mg/dL (0.2-1.2); Total Protein 6.9 g/dL (6.2-8.2)
== END | disposition home or self-care (01) ==
LOC: LABWHC1 11:23
PROVIDERS: ATTEND Internal Medicine
DX: D64.9 Anemia, unspecified (principal); R53.1 Weakness
CPT/HCPCS: 36415; 80053; 82607; 82728; 82746; 83540; 83550; 85025

== ENCOUNTER 2021-03-18 11:23 | Day surgery (SDC) | payer OTHER ==
[2021-03-16 15:44] VITALS: BMI 43.7
[~2021-03-18 11:23] MED LIST: LACTATED RINGERS 1,000 ML IV SCH
[2021-03-18 12:29] VITALS: RESP 16; TEMP 97.7
[2021-03-18] MEDS ORDERED: LIDOCAINE 1% (10MG/ML) FOR IV START INTRADERMA ONE (12:34)
[2021-03-18] MEDS ORDERED: LIDOCAINE 1% INJ 10MG/ML (20 ML MDV) ONE (13:08)
[2021-03-18] MEDS ORDERED: PROPOFOL 10 MG/ML 20 ML VIAL IV ONE (13:08)
--- NOTE | 2021-03-18 13:35 | P.PCN ---
Date of Procedure: 03/18/21 Procedure(s) Performed: Brief history: Patient is a pleasant 55-year-old white female scheduled for an elective upper endoscopy as well as colonoscopy as a part of evaluation of Iron deficiency anemia. He has history of A. fib and is Eliquis which is on hold for 2 days Procedure performed: Esophagogastroduodenoscopy biopsy Colonoscopy with biopsy and tattooing with Estela ink Preoperative diagnosis: iron deficiency anemia Anesthesia: [facility] Procedure: After informed consent was obtained from the patient was brought into the endoscopy unit and IV sedation was administered by anesthesia under continuous monitoring. Initially upper endoscopy was done. The Olympus GF 160 video endoscope was inserted inserted into the mouth and esophagus intubated without any difficulty and was gradually advanced into the stomach and duodenum and carefully examined. The bulb and second part of the duodenum appeared normal. biopsies were done from the duodenum to rule out celiac disease. The scope was then withdrawn into the stomach adequately insufflated with air and upon careful examination the antrum had mild nodular gastritis and biopsies were done from this area. The body, cardia and fundus appeared normal. The scope was then withdrawn into the esophagus. The GE junction was located at 40 cm to the incisors. It appeared regular with no erythema erosions or ulcerations. Rest of the esophagus appeared normal. Patient tolerated the procedure well. At this time the patient continued to remain sedation. Initial digital rectal examination was normal. Olympus CF 160 video colonoscope was then inserted into the rectum and gradually advanced to the cecum without any difficulty. Careful examination was performed as the scope was gradually being withdrawn. The prep was excellent. The cecum, ascending colon, appeared normal. In the mid to distal transverse colon there was a 2-3 cm ulcerated mass at 65 cm from the anal verge which was biopsied. Tattooing was performed with Estela ink. The mucosa of the descending colon, sigmoid colon and rectum appeared normal. Retroflexion was performed in the rectum and no lesions were noted. Patient tolerated the procedure well. Impression: 1. Upper endoscopy revealed mild antral gastritis 2. Colonoscopy revealed a 2-3 cm ulcerated mass in the mid/distal transverse colon at 65 cm from the anal verge status post biopsies followed by tattooing with Estela ink Recommendations: Findings of this examination were discussed with the patient as well as his family. He was advised to follow with the biopsy results and be seen in office in 3-4 days. He'll be scheduled for CT of the abdomen and pelvis.
[2021-03-18 13:52] VITALS: BP 135/86; PULSE 79
== END 2021-03-18 14:55 | disposition home or self-care (01) ==
LOC: ORWHC2ENDO 11:23
PROVIDERS: ATTEND Internal Medicine Gastroenterology
DX: K29.50 Unspecified chronic gastritis without bleeding (principal); C18.4 Malignant neoplasm of transverse colon; D50.9 Iron deficiency anemia, unspecified; K21.9 Gastro-esophageal reflux disease without esophagitis; I25.10 Atherosclerotic heart disease of native coronary artery without angina pectoris; I10 Essential (primary) hypertension; I48.91 Unspecified atrial fibrillation; E78.5 Hyperlipidemia, unspecified; J44.9 Chronic obstructive pulmonary disease, unspecified; Z79.1 Long term (current) use of non-steroidal anti-inflammatories (NSAID); Z79.899 Other long term (current) drug therapy
CPT/HCPCS: 88305; 45380; 43239; 45381; J2001; J2704; 44404

== ENCOUNTER → 2021-03-29 | Outpatient (CLI) | payer OTHER ==
--- NOTE | 2021-03-30 15:47 | CT ---
EXAMINATION TYPE: CT abdomen pelvis w con DATE OF EXAM: 03/29/2021 COMPARISON: 04/26/2018 INDICATION: mass in transverse colon DLP: 2646.5 mGycm, Automated exposure control for dose reduction was used. CONTRAST: 100 mL of Isovue 300. Study performed with Oral Contrast TECHNIQUE: Axial images were obtained from above the diaphragm to the pubic rami in the axial plane a t 5 mm thick sections. Reconstructed images are reviewed on the computer in the coronal plane. FINDINGS: Limited CT sections are obtained the lung bases. The lung bases are clear. CT ABDOMEN: Liver: There is moderate fatty saturation to the liver. Spleen: Normal Pancreas: Normal Adrenal glands: The adrenal glands are normal. Gallbladder: Normal Kidneys: No masses are evident. No hydronephrosis is present. No cysts are present. Delayed images were obtained through the kidneys, which remain unremarkable. Aorta: Vascular calcification is within the aorta. Inferior vena cava: Normal. CT PELVIS: No clear mass within the transverse colon is identified. Loops of bowel within the abdomen and pelvis are normal. There are loops of bowel which are incom pletely distended or lack oral contrast limiting their evaluation. Appendix: Not visualized. No dilated tubular structure inflammatory changes are evident. Urinary bladder: Normal. Genitourinary structures: Prostate contains calcification Osseous structures: There are some scattered sclerotic areas within the right pubic ramus and right f emoral head. Bone islands and sclerotic metastasis should be considered. There is a punctate chronic area of the medial right iliac wing. A sclerotic areas within the region of T10. IMPRESSIONS: 1. Discrete transverse colon mass is not identified. Consider colonoscopy or barium enema is additio nal evaluation is required. 2. There are a few scattered small sclerotic areas within the osseous structures most likely are bone islands. Sclerotic metastasis are not excluded. 3. Moderate fatty infiltration within the liver.
== END | disposition home or self-care (01) ==
LOC: RADCTMAIN 17:26
PROVIDERS: ATTEND Internal Medicine Gastroenterology
DX: K76.0 Fatty (change of) liver, not elsewhere classified (principal)
CPT/HCPCS: 74177; Q9967

== ENCOUNTER → 2021-04-13 | Outpatient (CLI) | payer OTHER ==
[2021-04-13 16:55] LABS: Anisocytosis Moderate; Hypochromasia Moderate; MCH 26.7 pg (25.0-35.0); MCHC 31.5 g/dL (31.0-37.0); Mean Platelet Volume 8.3; Microcytosis Slight; Platelet Count 221 k/uL (150-450); RDW 22.3 % (11.5-15.5); WBC 6.5 k/uL (3.8-10.6)
[2021-04-13 17:00] LABS: HGB 12.3 gm/dL (13.0-17.5); MCV 84.8 fL (80.0-100.0); Potassium 4.1 mmol/L (3.5-5.1)
== END | disposition home or self-care (01) ==
LOC: LABPAT 15:59
PROVIDERS: ATTEND Surgery
DX: Z01.812 Encounter for preprocedural laboratory examination (principal); C18.9 Malignant neoplasm of colon, unspecified; R94.31 Abnormal electrocardiogram [ECG] [EKG]
CPT/HCPCS: 36415; 80051; 85027

== ENCOUNTER 2021-04-15 09:21 | Inpatient (IN) | payer OTHER ==
[2021-04-13 15:02] VITALS: BMI 43.4
[~2021-04-15 09:21] MED LIST changes: +ACETAMINOPHEN TAB 500 MG TAB PO PRN; +ALVIMOPAN 12 MG CAPSULE PO PRN; +DEXAMETHASONE SOD PHOSPHATE 4 MG/ML 1 ML VIAL IV ONE; +HEPARIN SODIUM,PORCINE/PF 5,000 UNIT/0.5 ML SYRINGE SQ PRN; -LACTATED RINGERS 1,000 ML IV SCH; +LIDOCAINE 1% (10MG/ML) FOR IV START INTRADERMA PRN; +ONDANSETRON 4 MG/2 ML VIAL IVP ONE; +SCOPOLAMINE 1.5MG/72HR PATCH TRANSDERM ONE; +ceFAZolin 3 GM in SODIUM CHLORIDE 0.9% 100 ML IVPB PRN; +metroNIDAZOLE-NS PMX 500 MG in SALINE 1 100ML.BAG IVPB PRN
[2021-04-15] MEDS: LACTATED RINGERS 1,000 ML IV SCH ×2 (09:37→09:53)
[2021-04-15] MEDS ORDERED: MIDAZOLAM 2 MG/2 ML VIAL IVP ONE (11:10)
[2021-04-15] MEDS ORDERED: SUCCINYLCHOLINE CHLORIDE 100 MG/5 ML SYR IV ONE (12:35)
[2021-04-15] MEDS ORDERED: ePHEDrine SULFATE/0.9% NACL/PF 50 MG/5 ML SYRINGE IV ONE (12:35)
[2021-04-15] MEDS ORDERED: LIDOCAINE 1% INJ 10MG/ML (20 ML MDV) ONE (12:35)
[2021-04-15] MEDS ORDERED: PHENYLEPHRINE-0.9% NACL SYG 1,000 MCG/10 ML SYRINGE ONE (12:35)
[2021-04-15] MEDS ORDERED: PROPOFOL 10 MG/ML 20 ML VIAL IV ONE (12:35)
[2021-04-15] MEDS ORDERED: MIDAZOLAM 2 MG/2 ML VIAL ONE (12:35)
[2021-04-15] MEDS ORDERED: VASOPRESSIN 20 UNIT/ML 1 ML VIAL ONE (12:35)
[2021-04-15] MEDS ORDERED: HYDROmorphone (PF) 1 MG/ML ONE (12:35)
[2021-04-15] MEDS ORDERED: fentaNYL (PF) 50 MCG/ML 2 ML AMP ONE (12:35)
[2021-04-15] MEDS ORDERED: SODIUM CHLORIDE 0.9% (PF) 10 ML VIAL ONE (12:35)
[2021-04-15] MEDS ORDERED: GLYCOPYRROLATE 0.2 MG/ML 2 ML VIAL ONE (12:35)
[2021-04-15] MEDS ORDERED: ALBUMIN HUMAN 5% (12.5gm) 250 ML BOTTLE IVPB ONE (12:35)
[2021-04-15] MEDS ORDERED: NEOSTIGMINE 1 MG/ML 10 ML VIAL ONE (12:35)
[2021-04-15] MEDS ORDERED: ROPIVACAINE 5 MG/ML 30 ML VIAL ONE (12:35)
[2021-04-15] MEDS ORDERED: ROCURONIUM 10 MG/ML (5 ML VIAL) IV ONE (12:35)
--- NOTE | 2021-04-15 12:35 | P.ANPRN ---
Procedure Note - Anesthesia - Nerve Block Performed Bilateral Erector Spinae Time Out Performed: Yes (:) Date of Procedure: 04/15/21 Procedure Start Time: Procedure Stop Time: Location of Patient: PreOp Indication: Acute Post-Operative Pain, Requested by Surgeon (Dr Preston) Sedation Type: Sedate with meaningful contact maintained Preparation: Sterile Prep Position: Prone Catheter: None Needle Types: Pajunk Needle Gauge: 21 Ultrasound used to visualize needle placement: Yes Ultrasound used to observe medication spread: Yes Injectate: 0.5% Ropivacaine (see comment for volume) (15cc + 10cc PF normal saline each side) Blood Aspirated: No Pain Paresthesia on Injection Noted: No Resistance on Injection: Normal Image Stored and Saved: Yes Events: Uneventful and Well Tolerated
[2021-04-15] MEDS ORDERED: LACTATED RINGERS 1,000 ML IV ONE ×2 (14:21→16:51)
[2021-04-15] MEDS ORDERED: BENZOCAINE/MENTHOL LOZENG 1 EACH LOZENGE MUCOUS MEM PRN (15:27)
[2021-04-15] MEDS ORDERED: METOCLOPRAMIDE 5 MG/ML 2 ML VIAL IVP PRN (15:27)
[2021-04-15] MEDS ORDERED: ONDANSETRON 4 MG/2 ML VIAL IVP PRN (15:27)
--- NOTE | 2021-04-15 15:40 | P.OP ---
Date of Procedure: 04/15/21 Procedure(s) Performed: PREOPERATIVE DIAGNOSIS: Transverse colon cancer POSTOPERATIVE DIAGNOSIS: Same PROCEDURE: Partial colectomy, incidental appendectomy, partial omentectomy SURGEON: Kary EBL: 75 ML ANESTHESIA: General COMPLICATIONS: None OPERATIVE PROCEDURE: Placement placed in the operating table in the supine position. The patient was placed under general anesthesia. Abdomen was then prepped and draped sterilely. Midline incision made using the scalpel. Incision was kept to the supra umbilical location. Dissection through the subcutaneous tissues and fascia took place using electrocautery. Entrance into the peritoneal cavity occurred. Bookwalter retractor was utilized. The patient's colon had a tattoo sherwin in the mid transverse colon region. You could feel the mass at that location. No additional abnormalities were encountered in the small bowel or colon. The liver was palpated and no abnormalities were seen. The gastrocolic omentum was divided using the LigaSure. Us was taken all the way from the splenic flexure to the hepatic flexure. The hepatic flexure was fully mobilized. The patient had a very thin fibrinous appendix that was adherent to the right gutter. The appendix was excised using the LigaSure device and a silk stitch. Once we had adequate mobilization of the right side of the colon the bowel was divided proximal to the colonic mass. The bowel was then divided beyond that segment as well. The middle colic vasculature and associated lymphatics were included in our resection. I could not feel any abnormal lymph nodes throughout the mesentery. As we reached the proximal aspect of the middle colic vessel a small amount of venous bleeding was noted and controlled using 0 silk ties. Most of the mesentery was taken using a combination of 0 silk ties and the LigaSure device. The patient's omentum was extremely bulky and after mobilization of the transverse colon away from the omentum there were a few areas that appeared slightly ischemic. I decided to resect a portion of the omentum as well. At that time we had adequate length for the proximal and distal aspects of our resection to reach one another as a [id number] anastomosis. The antimesenteric portion of the staple line of both portions of colon was excised using electrocautery. The linear 75 stapler was fired along the antimesenteric border creating a [id number] anastomosis antiperistaltic. The defect was then closed using a TX 60 device. The TX 60 stapler line was imbricated using interrupted 3-0 GI silk sutures. A 3-0 GI silk crotch stitch was also placed. Again irrigation took place with no evidence of bleeding. The midline fascia was then reapproximated using 2 separate double-stranded looped PDS sutures. The subcutaneous tissues were closed using 3-0 Vicryl sutures. The skin was closed using genevieve. Sterile dressings were applied. At the end of this procedure the sponge needle and ensure counts were correct. DISPOSITION: Stable to recovery room
[2021-04-15] MEDS ORDERED: diphenhydrAMINE 50 MG/ML 1 ML VIAL ONE (15:48)
[2021-04-15] MEDS: HYDROmorphone 0.5 MG/0.5 ML SYRINGE IVP PRN ×2 (15:50→17:06)
[2021-04-15] MEDS ORDERED: diphenhydrAMINE 50 MG/ML 1 ML VIAL IVP ONE (15:51)
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
[2021-04-15] MEDS ORDERED: IPRATROPIUM-ALBUTEROL 3 ML NEB INHALATION PRN (16:29)
[2021-04-15] MEDS: HEPARIN SODIUM,PORCINE/PF 5,000 UNIT/0.5 ML SYRINGE SQ SCH (17:50)
[2021-04-15] MEDS: D5-0.45% NACL WITH KCL 20MEQ/L 1,000 ML IV SCH (17:50)
[2021-04-15] MEDS: IPRATROPIUM-ALBUTEROL 3 ML NEB INHALATION SCH (20:07)
[2021-04-15] MEDS: FAMOTIDINE 20 MG/2 ML VIAL IV SCH (21:11)
[2021-04-15] MEDS: lisinopriL 20 MG TAB PO SCH (21:11)
[2021-04-15] MEDS: HYDROmorphone 1 MG/ML 1 ML SYRINGE IVP PRN (21:12)
[2021-04-15] MEDS: ASPIRIN 81 MG PO SCH (21:13)
[2021-04-16] MEDS: HEPARIN SODIUM,PORCINE/PF 5,000 UNIT/0.5 ML SYRINGE SQ SCH ×3 (01:16→15:37)
[2021-04-16] MEDS: D5-0.45% NACL WITH KCL 20MEQ/L 1,000 ML IV SCH ×4 (01:18→20:47)
[2021-04-16] MEDS: HYDROmorphone 1 MG/ML 1 ML SYRINGE IVP PRN ×6 (02:12→22:23)
[2021-04-16] MEDS: LACTATED RINGERS 1,000 ML IV SCH ×2 (07:18→22:18)
[2021-04-16] MEDS: IPRATROPIUM-ALBUTEROL 3 ML NEB INHALATION SCH ×4 (07:21→20:15)
[2021-04-16] MEDS: ALVIMOPAN 12 MG CAPSULE PO SCH ×2 (08:33→20:47)
[2021-04-16] MEDS: METOPROLOL SUCCINATE (ER) 50 MG TAB.ER.24H PO SCH ×3 (08:33→20:47)
[2021-04-16] MEDS: FAMOTIDINE 20 MG/2 ML VIAL IV SCH ×2 (08:33→20:47)
[2021-04-16 08:56] LABS: African American GFR (CKD) 109.5 (60.0-200.0); Anion Gap 3.6 mmol/L (4.00-12.00); Calcium 9.2 mg/dL (8.7-10.3); Carbon Dioxide 31.4 mmol/L (21.6-31.8); Non-African American GFR(CKD) 94.5 (60.0-200.0); Potassium 4.8 mmol/L (3.5-5.5)
[2021-04-16 10:27] LABS: Basophils # (A) 0.03 X 10*3/uL (0.00-0.10); Basophils % (A) 0.2 %; Eosinophils # (A) 0 X 10*3/uL (0.04-0.35); Eosinophils % (A) 0 %; HCT 39.3 % (39.6-50.0); HGB 11.8 g/dL (13.0-17.0); Lymphocytes # (A) 1.35 X 10*3/uL (0.90-5.00); Lymphocytes % (A) 9.3 %; MCH 26.5 pg (27.0-32.0); MCV 88.1 fL (80.0-97.0); Mean Platelet Volume 10.8 fL (9.5-12.2); Monocytes # (A) 1.07 X 10*3/uL (0.20-1.00); Monocytes % (A) 7.4 %; Neutrophils % (A) 82.8 %; Platelet Count 278 X 10*3/uL (140-440); RBC 4.46 X 10*6/uL (4.40-5.60)
[2021-04-16 10:28] LABS: Anisocytosis (M) 2+
--- NOTE | 2021-04-16 11:41 | P.PN ---
Subjective Progress Note Date: 04/16/21 Principal diagnosis: Colonic mass, status post partial colectomy, incidental appendectomy partial omentectomy This is a 55-year-old white male with known history of multiple medical problems including coronary artery disease, previous stent placement in LAD with mild to moderate disease of the RCA, hypertension, mild intermittent asthma, dyslipidemia, paroxysmal atrial fibrillation, patient is status post PCI of the LAD in 2012. Patient normally follows up with me and with Dr. Marie. And recently the patient was found to have anemia. This was discovered on routine blood tests done by cardiology, and I recommended GI referral, patient underwent colonoscopy, and he was found to have a large mass in the transverse colon. Patient had previous colonoscopy in the last [address] Armenta for symptoms of colitis. And there was no evidence of polyps at the time. There is no family history of colon cancer. Patient was referred to Dr. rincon, and he underwent elective surgery today. Postoperatively I saw the patient in the recovery room, he was sedated and obtunded, I recommended placing the patient on BiPAP, and transferred from recovery eventually to regular medical floor. Patient was difficult to arouse, apparently he received some sedation in the form of Benadryl and Dilaudid because he was quite agitated shortly after he was extubated and transferred to recovery room. Could not get much history from the patient himself. But I am unaware of this patient, and I have seen him recently for preoperative clearance. I have also referred him to Dr. Marie who cleared the patient from the cardiac perspective The patient is seen today 04/16/2021 in follow-up on the regular medical floor. He is currently sitting up in a recliner. Awake and alert in no acute distress. Maintaining good O2 saturations in the 90s on room air. He's been afebrile. Hemodynamically stable. White count 14.5. Hemoglobin 11.8. Platelets 278. Sodium 134. Potassium 4.8. Creatinine 0.9. Glucose 189. He remains on DuoNeb inhalations, heparin for DVT prophylaxis, D5 W with half-normal saline and 20 mEq KCl at 125 ML's per hour. Dilaudid for pain control. He is working well with the incentive spirometer. Tolerating clear liquid diet. Objective - Vital Signs Vital signs: Vital Signs Temp 98.4 F 04/16/21 07:31 Pulse 79 07/17/21 08:31 Resp 17 04/16/21 08:31 BP 161/72 04/16/21 07:31 Pulse Ox 92 L 04/16/21 07:31 Intake & Output 04/15/21 04/16/21 04/16/21 18:59 06:59 18:59 Intake Total 2400 Output Total 450 575 Balance 1950 -575 Weight 135 kg Intake: IV 2400 Output: Urine 375 575 Estimated Blood Loss 75 - Exam GENERAL EXAM: Alert, active, pleasant 55-year-old gentleman, obese, on room air, fairly comfortable in no apparent distress. HEAD: Normocephalic. EYES: Normal reaction of pupils, equal size. NOSE: Clear with pink turbinates. THROAT: No erythema or exudates. NECK: No masses, no JVD. CHEST: No chest wall deformity. LUNGS: Equal air entry with no crackles, wheeze, rhonchi or dullness. CVS: S1 and S2 normal with no audible murmur, regular rhythm. ABDOMEN: Abdominal dressing dry and intact. Binder in place. Hypoactive bowel sounds, no guarding or rigidity. SPINE: No scoliosis or deformity SKIN: No rashes CENTRAL NERVOUS SYSTEM: No focal deficits, tone is normal in all 4 extremities. EXTREMITIES: There is no peripheral edema. No clubbing, no cyanosis. Peripheral pulses are intact. - Labs CBC & Chem 7: 04/16/21 05:17 04/16/21 05:17 Labs: Abnormal Lab Results - Last 24 Hours (Table) 04/16/21 04/16/21 Range/Units 05:17 05:17 WBC 14.50 H (4.50-10.00) X 10*3/uL Hgb 11.8 L (13.0-17.0) g/dL Hct 39.3 L (39.6-50.0) % MCH 26.5 L (27.0-32.0) pg MCHC 30.0 L (32.0-37.0) g/dL Immature Gran # 0.05 H (0.00-0.04) X 10*3/uL Neutrophils # 12.00 H (1.80-7.70) X 10*3/uL Monocytes # 1.07 H (0.20-1.00) X 10*3/uL Eosinophils # 0 L (0.04-0.35) X 10*3/uL Sodium 134 L (135-145) mmol/L Anion Gap 3.60 L (4.00-12.00) mmol/L BUN/Creatinine Ratio 10.00 L (12.00-20.00) Ratio Glucose 189 H (70-110) mg/dL Assessment and Plan Assessment: 1 Status post partial colectomy, incidental appendectomy, partial omentectomy, postoperative day #1. 2 Transverse colon cancer. 3 Anemia secondary to GI blood losses. 4 Coronary artery disease and previous stent placement. 5 Paroxysmal atrial fibrillation. 6 Benign essential hypertension. 7 Mild intermittent asthma. 8 Family history of coronary artery disease. 9 Dyslipidemia. 10 History of depression. 11 History of GERD without esophagitis. 12 Suspect underlying obstructive sleep apnea Plan: The patient was seen and evaluated by Dr. Evelyn Altamirano from the pulmonary standpoint Working well with the incentive spirometer Currently on room air Increase his activity as tolerated We will continue to follow I, the cosigning physician, performed a history & physical examination of the patient. Lungs sounds are clear. Maintaining good O2 saturations in the 90s on room air. I discussed the assessment and plan of care with my nurse practitioner, Shaina Torre. I attest to the above note as dictated by her.
--- NOTE | 2021-04-16 13:54 | P.PN ---
Subjective Progress Note Date: 04/16/21 CHIEF COMPLAINT: Transverse colon cancer HISTORY OF PRESENT ILLNESS: The patient is a 55-year-old gentleman status post transverse colon cancer. He had some bleeding. He reported feeling well until he had exertional activity prompting incisional pain. His pain is stable. ROS: No nausea or vomiting. No fevers or chills. No bowel movements or flatus. PHYSICAL EXAM: VITAL SIGNS: Reviewed CONSTITUTIONAL: Well developed and in no acute distress. EYES: Conjuctivae without sclera icterus. Extraocular movements grossly intact. HEAD, EARS, NOSE, THROAT: Moist buccal mucosa. Head is atraumatic, normocephalic. Hears conversational speech. No nasal drainage. NECK: No jugular venous distention. RESPIRATORY: Non-labored respirations and equal bilateral excursions. CARDIOVASCULAR: Palpable 2+ radial pulses. ABDOMEN: Dressed and intact. MUSCULOSKELETAL: No gross deformity of the lower extremities noted. No clubbing. No cyanosis. SKIN: Good skin turgor. Well perfused. NEUROLOGIC: Cranial nerves II through XII grossly intact. No focal or lateralizing signs. PSYCH: Appropriate affect. Alert and oriented to person, place and time. CLINICAL LABS: Reviewed. Hemoglobin stable 12.3-11.8. ASSESSMENT: 1. Transverse colon cancer PLAN: 1. Await bowel function 2. Prokinetic agent continued. 3. Pain management continue with the narcotic as needed Objective - Vital Signs Vital signs: Vital Signs Temp 98.4 F 04/16/21 07:31 Pulse 79 04/16/21 07:31 Resp 17 04/16/21 07:31 BP 161/72 04/16/21 07:31 Pulse Ox 92 L 04/16/21 07:31 Intake & Output 04/15/21 04/16/21 04/16/21 18:59 06:59 18:59 Intake Total 2400 Output Total 450 575 Balance 1950 -575 Weight 135 kg Intake: IV 2400 Output: Urine 375 575 Estimated Blood Loss 75 - Labs CBC & Chem 7: 04/16/21 05:17 04/16/21 05:17 Labs: Abnormal Lab Results - Last 24 Hours (Table) 04/16/21 Range/Units 05:17 Sodium 134 L (135-145) mmol/L Anion Gap 3.60 L (4.00-12.00) mmol/L BUN/Creatinine Ratio 10.00 L (12.00-20.00) Ratio Glucose 189 H (70-110) mg/dL
[2021-04-16] MEDS: lisinopriL 20 MG TAB PO SCH (20:47)
[2021-04-16] MEDS: ASPIRIN 81 MG PO SCH (20:47)
[2021-04-17] MEDS: HEPARIN SODIUM,PORCINE/PF 5,000 UNIT/0.5 ML SYRINGE SQ SCH ×4 (01:22→22:44)
[2021-04-17] MEDS: HYDROmorphone 1 MG/ML 1 ML SYRINGE IVP PRN ×8 (01:22→22:44)
[2021-04-17] MEDS: ALVIMOPAN 12 MG CAPSULE PO SCH ×2 (07:20→19:50)
[2021-04-17] MEDS: FAMOTIDINE 20 MG/2 ML VIAL IV SCH ×2 (07:20→19:51)
[2021-04-17] MEDS: METOPROLOL SUCCINATE (ER) 50 MG TAB.ER.24H PO SCH ×3 (07:20→19:51)
[2021-04-17] MEDS: IPRATROPIUM-ALBUTEROL 3 ML NEB INHALATION SCH ×4 (07:44→19:19)
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
--- NOTE | 2021-04-17 18:25 | P.PN ---
Subjective Progress Note Date: 04/17/21 CHIEF COMPLAINT: Transverse colon cancer HISTORY OF PRESENT ILLNESS: The patient is a 55-year-old gentleman status post transverse colon cancer. He denies flatus. Abdominal pain improved from yesterday. He is sitting in the chair. He had urinary retention yesterday. He reports bladder urgency today. He reports dark urine. Fluids decreased by his primary care provider. No flatus. No bowel movements. ROS: No nausea or vomiting. No fevers or chills. No bowel movements or flatus. PHYSICAL EXAM: VITAL SIGNS: Reviewed CONSTITUTIONAL: Well developed and in no acute distress. EYES: Conjuctivae without sclera icterus. Extraocular movements grossly intact. HEAD, EARS, NOSE, THROAT: Moist buccal mucosa. Head is atraumatic, normocephalic. Hears conversational speech. No nasal drainage. NECK: No jugular venous distention. RESPIRATORY: Non-labored respirations and equal bilateral excursions. CARDIOVASCULAR: Palpable 2+ radial pulses. ABDOMEN: Dressing intact. No peritonitis. MUSCULOSKELETAL: No gross deformity of the lower extremities noted. No clubbing. No cyanosis. SKIN: Good skin turgor. Well perfused. NEUROLOGIC: Cranial nerves II through XII grossly intact. No focal or l ateralizing signs. PSYCH: Appropriate affect. Alert and oriented to person, place and time. CLINICAL LABS: Reviewed. ASSESSMENT: 1. Transverse colon cancer 2. Urinary retention PLAN: 1. Await bowel function 2. May benefit from short trial of flomax to address urinary retention. Objective - Vital Signs Vital signs: Vital Signs Temp 98.1 F 04/17/21 13:58 Pulse 90 04/17/21 15:20 Resp 16 04/17/21 15:20 BP 133/82 04/17/21 13:58 Pulse Ox 91 L 04/17/21 13:58 Intake & Output 04/16/21 04/17/21 04/17/21 18:59 06:59 18:59 Output Total 200 Balance -200 Output: Urine 200 Other: # Voids 3 4 5 - Labs CBC & Chem 7: 04/16/21 05:17 04/16/21 05:17
[2021-04-17] MEDS: D5-0.45% NACL WITH KCL 20MEQ/L 1,000 ML IV SCH ×2 (19:18→19:19)
[2021-04-17] MEDS: ASPIRIN 81 MG PO SCH (19:51)
[2021-04-17] MEDS: lisinopriL 20 MG TAB PO SCH (19:51)
[2021-04-18] MEDS: HYDROmorphone 1 MG/ML 1 ML SYRINGE IVP PRN ×3 (01:47→09:00)
[2021-04-18] MEDS: LACTATED RINGERS 1,000 ML IV SCH (04:44)
[2021-04-18] MEDS: IPRATROPIUM-ALBUTEROL 3 ML NEB INHALATION SCH ×4 (07:09→20:57)
[2021-04-18] MEDS: ALVIMOPAN 12 MG CAPSULE PO SCH ×2 (08:55→20:03)
[2021-04-18] MEDS: METOPROLOL SUCCINATE (ER) 50 MG TAB.ER.24H PO SCH ×3 (08:55→20:03)
[2021-04-18] MEDS: HEPARIN SODIUM,PORCINE/PF 5,000 UNIT/0.5 ML SYRINGE SQ SCH ×2 (08:56→17:05)
[2021-04-18] MEDS: FAMOTIDINE 20 MG/2 ML VIAL IV SCH ×2 (08:56→20:03)
[2021-04-18 11:34] LABS: HCT 37.1 % (39.6-50.0); HGB 11.1 g/dL (13.0-17.0); MCH 26.1 pg (27.0-32.0); MCHC 29.9 g/dL (32.0-37.0); MCV 87.3 fL (80.0-97.0); Mean Platelet Volume 10.8 fL (9.5-12.2); Platelet Count 251 X 10*3/uL (140-440); RBC 4.25 X 10*6/uL (4.40-5.60); RDW 24.4 % (11.5-14.5); WBC 8.26 X 10*3/uL (4.50-10.00)
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
[2021-04-18 11:50] LABS: African American GFR (CKD) 114.9 (60.0-200.0); Blood Urea Nitrogen <5.0 mg/dL (9.0-27.0); Calcium 8.6 mg/dL (8.7-10.3); Carbon Dioxide 30.8 mmol/L (21.6-31.8); Chloride 97 mmol/L (96-109); Glucose 140 mg/dL (70-110); Non-African American GFR(CKD) 99.2 (60.0-200.0); Potassium 4.1 mmol/L (3.5-5.5); Sodium 136 mmol/L (135-145)
--- NOTE | 2021-04-18 11:52 | P.PN ---
Subjective Progress Note Date: 04/18/21 Principal diagnosis: Colon mass Patient doing well today. Tolerating clears. No flatus. He is afebrile. White blood cell count is now normal. Objective - Vital Signs Vital signs: Vital Signs Temp 97.6 F 04/18/21 07:46 Pulse 88 04/18/21 11:21 Resp 16 04/18/21 11:21 BP 147/83 04/18/21 07:46 Pulse Ox 93 L 04/18/21 07:46 Intake & Output 04/17/21 04/18/21 04/18/21 18:59 06:59 18:59 Intake Total 600 Balance 600 Intake: Oral 600 Other: # Voids 5 3 - Exam Abdomen: Soft, obese, dressing clean and dry, mild tenderness - Labs CBC & Chem 7: 04/18/21 06:26 04/18/21 06:26 Labs: Abnormal Lab Results - Last 24 Hours (Table) 04/18/21 04/18/21 Range/Units 06:26 06:26 RBC 4.25 L (4.40-5.60) X 10*6/uL Hgb 11.1 L (13.0-17.0) g/dL Hct 37.1 L (39.6-50.0) % MCH 26.1 L (27.0-32.0) pg MCHC 29.9 L (32.0-37.0) g/dL RDW 24.4 H (11.5-14.5) % BUN <5.0 L (9.0-27.0) mg/dL Glucose 140 H (70-110) mg/dL Calcium 8.6 L (8.7-10.3) mg/dL Assessment and Plan (1) Colon cancer Narrative/Plan: Patient seems to be gradually improving. Continue ambulation. Will increase diet. Add Toradol for pain control. Current Visit: Yes Status: Acute Code(s): C18.9 - MALIGNANT NEOPLASM OF COLON, UNSPECIFIED SNOMED Code(s): 743491838
[2021-04-18] MEDS: D5-0.45% NACL WITH KCL 20MEQ/L 1,000 ML IV SCH (12:24)
[2021-04-18] MEDS: KETOROLAC 15 MG/ML 1 ML VIAL IVP SCH ×2 (12:24→17:04)
[2021-04-18 12:32] LABS: Anisocytosis (M) 2+; Basophils # (A) 0.07 X 10*3/uL (0.00-0.10); Basophils % (A) 0.8 %; Eosinophils # (A) 0.26 X 10*3/uL (0.04-0.35); Eosinophils % (A) 3.1 %; Lymphocytes # (A) 1.73 X 10*3/uL (0.90-5.00); Lymphocytes % (A) 20.9 %; Monocytes # (A) 0.89 X 10*3/uL (0.20-1.00); Monocytes % (A) 10.8 %; Neutrophils # (A) 5.27 X 10*3/uL (1.80-7.70); Neutrophils % (A) 63.9 %
[2021-04-18] MEDS: ASPIRIN 81 MG PO SCH (20:03)
[2021-04-18] MEDS: lisinopriL 20 MG TAB PO SCH (20:03)
[2021-04-19] MEDS: KETOROLAC 15 MG/ML 1 ML VIAL IVP SCH ×5 (00:20→23:32)
[2021-04-19] MEDS: HEPARIN SODIUM,PORCINE/PF 5,000 UNIT/0.5 ML SYRINGE SQ SCH ×4 (00:20→23:32)
[2021-04-19] MEDS: LACTATED RINGERS 1,000 ML IV SCH (04:46)
[2021-04-19] MEDS: D5-0.45% NACL WITH KCL 20MEQ/L 1,000 ML IV SCH (05:17)
[2021-04-19] MEDS: IPRATROPIUM-ALBUTEROL 3 ML NEB INHALATION SCH ×4 (07:46→19:33)
[2021-04-19] MEDS: FAMOTIDINE 20 MG/2 ML VIAL IV SCH ×2 (07:50→21:37)
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
[2021-04-19] MEDS: METOPROLOL SUCCINATE (ER) 50 MG TAB.ER.24H PO SCH ×3 (10:16→21:36)
[2021-04-19] MEDS: ALVIMOPAN 12 MG CAPSULE PO SCH ×2 (10:16→21:37)
--- NOTE | 2021-04-19 11:43 | P.PN ---
Subjective Progress Note Date: 04/19/21 Principal diagnosis: Colon mass Patient doing well today. He had a bowel movement earlier. Minimal pain. He is afebrile. Objective - Vital Signs Vital signs: Vital Signs Temp 97.7 F 04/19/21 08:20 Pulse 76 04/19/21 11:28 Resp 16 04/19/21 08:20 BP 142/85 04/19/21 08:20 Pulse Ox 98 04/19/21 08:20 Intake & Output 04/18/21 04/19/21 04/19/21 18:59 06:59 18:59 Intake Total 300 1200 400 Balance 300 1200 400 Intake: Intake, IV Titration 600 400 Amount D5-0.45% NaCl with KCl 600 400 20Meq/l 1,000 ml @ 50 mls /hr IV .Q20H DELFIN Rx#: [id number] Oral 300 600 Other: # Voids 5 3 - Exam Abdomen: Soft, obese, dressing clean and dry, binder in place - Labs CBC & Chem 7: 04/18/21 06:26 04/18/21 06:26 Labs: Abnormal Lab Results - Last 24 Hours (Table) 04/18/21 Range/Units 06:26 BUN <5.0 L (9.0-27.0) mg/dL Glucose 140 H (70-110) mg/dL Calcium 8.6 L (8.7-10.3) mg/dL Assessment and Plan (1) Colon cancer Narrative/Plan: Patient doing well at this time. Will increase diet. Possible discharge tomorrow. Current Visit: Yes Status: Acute Code(s): C18.9 - MALIGNANT NEOPLASM OF COLON, UNSPECIFIED SNOMED Code(s): 653782135
[2021-04-19] MEDS: ASPIRIN 81 MG PO SCH (21:36)
[2021-04-19] MEDS: lisinopriL 20 MG TAB PO SCH (21:37)
[2021-04-20] MEDS: KETOROLAC 15 MG/ML 1 ML VIAL IVP SCH ×2 (05:53→11:39)
[2021-04-20] MEDS: LACTATED RINGERS 1,000 ML IV SCH (05:54)
[2021-04-20 06:58] VITALS: RESP 17
[2021-04-20] MEDS: IPRATROPIUM-ALBUTEROL 3 ML NEB INHALATION SCH ×2 (07:40→11:17)
[2021-04-20] MEDS: HEPARIN SODIUM,PORCINE/PF 5,000 UNIT/0.5 ML SYRINGE SQ SCH (07:45)
[2021-04-20] MEDS: ALVIMOPAN 12 MG CAPSULE PO SCH (09:06)
[2021-04-20] MEDS: METOPROLOL SUCCINATE (ER) 50 MG TAB.ER.24H PO SCH (09:06)
[2021-04-20] MEDS: FAMOTIDINE 20 MG/2 ML VIAL IV SCH (09:06)
[2021-04-20] MEDS ORDERED: HYDROcodone/APAP 5-325MG 1 EACH TAB PO PRN (10:08)
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
[2021-04-20 11:36] VITALS: BP 153/77; PULSE 68; TEMP 97.8
--- NOTE | 2021-04-20 13:30 | P.DS ---
Providers Date of admission: 04/15/21 09:21 Expected date of discharge: 04/20/21 Attending physician: Renny Preston Consults: 04/15/21 15:27 Consult Physician Routine Consulting Provider: Ganesh Rivas Consult Reason/Comments: Medical management Do you want consulting provider notified?: Yes Primary care physician: Ganesh Rivas Hospital Course: Discharge diagnosis 1. 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 He is status post Partial colectomy, incidental appendectomy, partial omentectomy. Patient tolerated surgery well. His pain is controlled. He is tolerating diet. He is up and ambulating. He is having bowel movements. He is afebrile. His incision site is clean dry and intact. He is stable for discharge. Please refer to chart for any further details. Physician Screw Machine Set Up Operator note has been reviewed by physician. Signing provider agrees with the documented findings, assessment, and plan of care. Patient Condition at Discharge: Stable Plan - Discharge Summary Discharge Rx Participant: Yes New Discharge Prescriptions: New HYDROcodone/APAP 5-325MG [[place] 5-325] 1 tab PO Q6HR PRN 3 Days #12 tab PRN Reason: Analgesia Continue clonazePAM [KlonoPIN] 0.75 mg PO HS Simvastatin [Zocor] 20 mg PO HS Cetirizine HCl 10 mg PO HS Montelukast [Singulair] 10 mg PO HS Aspirin 81 mg PO HS Esomeprazole Magnesium [NexIUM] 20 mg PO HS Apixaban [Eliquis] 5 mg PO BID #60 tab lisinopriL [Prinivil] 20 mg PO HS DULoxetine HCL [Cymbalta] 60 mg PO HS Metoprolol Succinate (ER) [Toprol XL] 50 mg PO TID Tadalafil [Cialis] 10 mg PO DIRECTED PRN PRN Reason: erectile dysfunction Ferrous Sulfate [Iron (65 MG Elemental)] 325 mg PO DAILY Discharge Medication List Aspirin 81 mg PO HS 02/20/14 [History] Cetirizine HCl 10 mg PO HS 02/20/14 [History] Montelukast [Singulair] 10 mg PO HS 02/20/14 [History] Simvastatin [Zocor] 20 mg PO HS 02/20/14 [History] clonazePAM [KlonoPIN] 0.75 mg PO HS 02/20/14 [History] Esomeprazole Magnesium [NexIUM] 20 mg PO HS 05/19/14 [History] Apixaban [Eliquis] 5 mg PO BID #60 tab 08/13/17 [Rx] DULoxetine HCL [Cymbalta] 60 mg PO HS 09/11/20 [History] lisinopriL [Prinivil] 20 mg PO HS 09/11/20 [History] Tadalafil [Cialis] 10 mg PO DIRECTED PRN 03/08/21 [History] Ferrous Sulfate [Iron (65 MG Elemental)] 325 mg PO DAILY 03/16/21 [History] Metoprolol Succinate (ER) [Toprol XL] 50 mg PO TID 03/16/21 [History] HYDROcodone/APAP 5-325MG [[place] 5-325] 1 tab PO Q6HR PRN 3 Days #12 tab 04/20/21 [Rx] Follow up Appointment(s)/Referral(s): [facility], [NON-STAFF] - Renny Preston MD [Medical Doctor] - 1 Week Activity/Diet/Wound Care/Special Instructions: No driving while taking [place] No lifting over 10 pounds You may shower. No soaking or tub baths for 2 weeks Very light activity until you are reevaluated at your follow up appointment with your surgeon
== END 2021-04-20 15:18 | disposition home health service (06) | DRG 330 ==
LOC: 2ORMAIN 09:21 → 4SSUR 17:04
PROVIDERS: ADMIT Surgery; ATTEND Surgery
PROC: 0DTJ0ZZ Resection of Appendix, Open Approach (ICD-10-PCS; principal; 2021-04-15 11:15)
PROC: 0DBL0ZZ Excision of Transverse Colon, Open Approach (ICD-10-PCS; principal; 2021-04-15 11:15)
PROC: 0DBU0ZZ Excision of Omentum, Open Approach (ICD-10-PCS; principal; 2021-04-15 11:15)
DX: C18.4 Malignant neoplasm of transverse colon (principal); Z68.41 Body mass index [BMI] 40.0-44.9, adult; E66.01 Morbid (severe) obesity due to excess calories; I48.0 Paroxysmal atrial fibrillation; D50.0 Iron deficiency anemia secondary to blood loss (chronic); M54.12 Radiculopathy, cervical region; E78.5 Hyperlipidemia, unspecified; J44.9 Chronic obstructive pulmonary disease, unspecified; J45.20 Mild intermittent asthma, uncomplicated; K21.9 Gastro-esophageal reflux disease without esophagitis; N40.1 Benign prostatic hyperplasia with lower urinary tract symptoms; R33.8 Other retention of urine; L30.9 Dermatitis, unspecified; I25.10 Atherosclerotic heart disease of native coronary artery without angina pectoris; F32.9 Major depressive disorder, single episode, unspecified; M19.90 Unspecified osteoarthritis, unspecified site; K58.9 Irritable bowel syndrome, unspecified; I10 Essential (primary) hypertension; M54.5 Low back pain; G89.29 Other chronic pain; G47.33 Obstructive sleep apnea (adult) (pediatric); Z79.01 Long term (current) use of anticoagulants; Z79.82 Long term (current) use of aspirin; Z79.899 Other long term (current) drug therapy; Z95.5 Presence of coronary angioplasty implant and graft; Z96.651 Presence of right artificial knee joint; Z87.891 Personal history of nicotine dependence; Z80.0 Family history of malignant neoplasm of digestive organs; Z82.49 Family history of ischemic heart disease and other diseases of the circulatory system
CPT/HCPCS: 64999; 80048; 85025; 86850; 86900; 86901; 88309; 94640; 94660; 94760

== ENCOUNTER 2021-05-13 10:19 | Day surgery (SDC) | payer OTHER ==
[~2021-05-13 10:19] MED LIST changes: -ACETAMINOPHEN TAB 500 MG TAB PO PRN; -ALVIMOPAN 12 MG CAPSULE PO PRN; -DEXAMETHASONE SOD PHOSPHATE 4 MG/ML 1 ML VIAL IV ONE; -HEPARIN SODIUM,PORCINE/PF 5,000 UNIT/0.5 ML SYRINGE SQ PRN; +LACTATED RINGERS 1,000 ML IV SCH; -ONDANSETRON 4 MG/2 ML VIAL IVP ONE; +Pre Op ABX Message 1 EACH MISC MISCELLANE ONE; -SCOPOLAMINE 1.5MG/72HR PATCH TRANSDERM ONE; -ceFAZolin 3 GM in SODIUM CHLORIDE 0.9% 100 ML IVPB PRN; +fentaNYL (PF) 50 MCG/ML 2 ML AMP IVP PRN; -metroNIDAZOLE-NS PMX 500 MG in SALINE 1 100ML.BAG IVPB PRN
[2021-05-13] MEDS: DEXAMETHASONE SOD PHOSPHATE 4 MG/ML 1 ML VIAL IV ONE ×2 (11:05→11:51)
[2021-05-13] MEDS: ONDANSETRON 4 MG/2 ML VIAL IVP ONE ×2 (11:05→11:51)
[2021-05-13] MEDS ORDERED: HEPARIN SODIUM,PORCINE/PF 5,000 UNIT/0.5 ML SYRINGE SQ ONE (11:49)
--- NOTE | 2021-05-13 11:58 | P.HPADDEND ---
H&P Addendum H&P Addendum Date: 05/13/21 Patient was seen by oncology after our last office visit. Plans are to initiate chemotherapy in the adjuvant setting. This will begin in the next week or so. Patient has an iron infusion scheduled for next week. Here today for Port-A-Cath placement. Risks of bleeding, infection, DVT, pneumothorax, catheter malfunction, anesthesia related complications were discussed. The patient understands and wishes to proceed.
[2021-05-13] MEDS ORDERED: ceFAZolin 3 GM in SODIUM CHLORIDE 0.9% 100 ML IVPB ONE (12:00)
[2021-05-13] MEDS ORDERED: LIDOCAINE 1% INJ 10MG/ML (20 ML MDV) ONE (12:20)
[2021-05-13] MEDS ORDERED: SUCCINYLCHOLINE CHLORIDE VIAL 200 MG/10 ML VIAL IV ONE (12:20)
[2021-05-13] MEDS ORDERED: fentaNYL (PF) 50 MCG/ML 2 ML AMP ONE (12:20)
[2021-05-13] MEDS ORDERED: PROPOFOL 10 MG/ML 20 ML VIAL IV ONE (12:20)
[2021-05-13] MEDS ORDERED: MIDAZOLAM 2 MG/2 ML VIAL ONE (12:20)
[2021-05-13] MEDS ORDERED: SODIUM CHLORIDE 0.9% 100 ML with ceFAZolin 2,000 MG IV ONE ×2 (12:25)
[2021-05-13] MEDS ORDERED: HEPARIN SODIUM,PORCINE 100 UNIT/ML 5 ML VIAL IV ONE (12:50)
[2021-05-13] MEDS ORDERED: BUPIVACAINE (PF) 0.5% 30 ML VIAL SQ ONE ×2 (12:51)
[2021-05-13] MEDS ORDERED: HYDROcodone/APAP 5-325MG 1 EACH TAB PO PRN (13:18)
[2021-05-13] MEDS ORDERED: NALOXONE 0.4 MG/ML 1 ML VIAL IV PRN (13:18)
--- NOTE | 2021-05-13 13:20 | P.OP ---
Date of Procedure: 05/13/21 Procedure(s) Performed: PREOPERATIVE DIAGNOSIS: Colon cancer POSTOPERATIVE DIAGNOSIS: Same PROCEDURE: Port-A-Cath placement with fluoroscopic and ultrasound guidance SURGEON: Kary EBL: Minimal ANESTHESIA: Sedation COMPLICATIONS: None OPERATIVE PROCEDURE: Patient was brought and placed on the operative table in the supine position. The patient was sedated per anesthesia that time. The chest and neck were prepped and draped in usual sterile fashion. The ultrasound probe was used to identify the location of the right internal jugular vein. The skin was localized with lidocaine. The Seldinger needle was advanced into the IJ under ultrasound guidance. The wire was advanced through the needle under fluoroscopic guidance into the superior vena cava. A port pocket was created in the right infraclavicular location. The catheter was tunneled from the wire entrance site to the port pocket. The port was then connected to the catheter. The dilator introducer was threaded over the guidewire. The guidewire and dilator were then removed. The catheter was advanced through the introducer and introducer was then removed. The tip was seen to be in the right atrial junction via fluoroscopy. A picture of the radiograph showing the tip at the radial digital junction was taken. Port was flushed with both saline and a Hep- Lock solution. There was good flow both in and out of the port. The port was sutured in underlying tissues using 3-0 silk sutures. The subcutaneous tissues were reapproximated using 3-0 Vicryl sutures and the skin at both locations using 4-0 Monocryl sutures. Skin glue and sterile dressings then applied. DISPOSITION: Stable to recovery room
[2021-05-13 13:25] VITALS: TEMP 97.8
--- NOTE | 2021-05-13 13:41 | XR ---
EXAMINATION TYPE: XR chest 1V confirm line [facility] DATE OF EXAM: 05/13/2021 COMPARISON: 09/11/2020 INDICATION: Line placement TECHNIQUE: Single frontal view of the chest is obtained. FINDINGS: The heart size is normal. The pulmonary vasculature is normal. The lungs are clear. Spondylosis is within the thoracic spine. No pneumothorax is evident. Port is placed on the right with the tip in the superior vena cava region . IMPRESSION: 1. No pneumothorax post line placement. Tip is in the superior vena cava region.
[2021-05-13 13:56] VITALS: RESP 16
[2021-05-13 14:15] VITALS: BP 138/86; PULSE 87
--- NOTE | 2021-05-13 15:48 | FL ---
Fluoroscopy INDICATION: Pain FINDINGS: Fluoroscopy time: 10 seconds. Images obtained: 1. IMPRESSIONS: 1. Documentation of fluoroscopy.
== END 2021-05-13 14:38 | disposition home or self-care (01) ==
LOC: OR 10:19
PROVIDERS: ATTEND Surgery
DX: C18.9 Malignant neoplasm of colon, unspecified (principal); I25.10 Atherosclerotic heart disease of native coronary artery without angina pectoris; I48.91 Unspecified atrial fibrillation; J44.9 Chronic obstructive pulmonary disease, unspecified; N40.0 Benign prostatic hyperplasia without lower urinary tract symptoms; R06.83 Snoring; Z95.818 Presence of other cardiac implants and grafts; E11.9 Type 2 diabetes mellitus without complications; Z45.2 Encounter for adjustment and management of vascular access device
CPT/HCPCS: 36561; 77001; C1788; J2250; J0330; J1642; J1100; J2405; J0690; J2001; J3010; J2704; J1644

== ENCOUNTER → 2021-08-11 | Outpatient (CLI) | payer OTHER ==
[2021-08-11 16:27] LABS: Appearance,Urine Clear (Clear); Bilirubin,Urine Negative (Negative); Blood,Urine Negative (Negative); Color,Urine Light Yellow; Glucose,Urine (UA) 4+ (Negative); Ketones,Urine Negative (Negative); Leukocyte Esterase,Urine Moderate (Negative); Nitrite,Urine Negative (Negative); Protein,Urine Negative (Negative); RBC,Urine 3 /hpf (0-5); Specific Gravity,Urine 1.014 (1.001-1.035); Squamous Epithelial Cell,Urine <1 /hpf (0-4); Urobilinogen,Urine <2.0 mg/dL (<2.0); WBC,Urine 35 /hpf (0-5)
== END | disposition home or self-care (01) ==
LOC: LABWHC1 15:36
PROVIDERS: ATTEND Internal Medicine
DX: N39.0 Urinary tract infection, site not specified (principal); R31.9 Hematuria, unspecified; R35.0 Frequency of micturition
CPT/HCPCS: 81001; 87086; 36415; G0103

== ENCOUNTER → 2021-10-05 | Outpatient (CLI) | payer OTHER ==
[2021-10-05 14:29] LABS: African American GFR (CKD) >90 (>60 ml/min/1.73 sqM); Blood Urea Nitrogen 11 mg/dL (9-20); Non-African American GFR(CKD) >90 (>60 ml/min/1.73 sqM)
--- NOTE | 2021-10-05 15:42 | CT ---
EXAMINATION TYPE: CT abdomen pelvis w con DATE OF EXAM: 10/05/2021 COMPARISON: 03/29/2021 INDICATION: h/o colon ca DLP: 2992.4 mGycm, Automated exposure control for dose reduction was used. CONTRAST: 100 mL of Isovue 300. Study performed with Oral Contrast TECHNIQUE: Axial images were obtained from above the diaphragm to the pubic rami in the axial plane a t 5 mm thick sections. Reconstructed images are reviewed on the computer in the coronal plane. FINDINGS: Limited CT sections are obtained the lung bases. The lung bases are clear. CT ABDOMEN: Liver: Is moderate fatty infiltration to liver. No discrete masses are evident. Spleen: Normal Pancreas: Atrophic Adrenal glands: The adrenal glands are normal. Gallbladder: Normal Kidneys: No masses are evident. No hydronephrosis is present. No cysts are present. Delayed images were obtained through the kidneys, which remain unremarkable. Aorta: Vascular calcification is within the aorta. Inferior vena cava: Normal. CT PELVIS: Descending colon has been resected. The anastomosis and hepatic flexure appears normal. Couple of div erticula are present within the sigmoid colon There are loops of bowel which are incompletely dist ended or lack oral contrast limiting their evaluation. Appendix: Visualized Urinary bladder: Slightly thickened urinary bladder wall is present. Genitourinary structures: Calcifications within the prostate. Osseous structures: No suspicious lytic or sclerotic lesions. IMPRESSIONS: 1. No suspicious changes to suggest recurrent or metastatic colon cancer
== END | disposition home or self-care (01) ==
LOC: RADCTMAIN 13:26
PROVIDERS: ATTEND Internal Medicine Hematology & Oncology
DX: C18.4 Malignant neoplasm of transverse colon (principal)
CPT/HCPCS: 82565; 84520; 74177; 36415; Q9967

== ENCOUNTER → 2022-01-10 | Outpatient (CLI) | payer MEDICARE, OTHER ==
[2022-01-10 23:31] LABS: ALT 58 U/L (10-49); AST 55 U/L (14-35); Chol/HDL Ratio 5.67 Ratio; LDL Cholesterol,Calculated 102.4 mg/dL (0.0-131.0)
== END | disposition home or self-care (01) ==
LOC: LABWHC1 14:42
PROVIDERS: ATTEND Internal Medicine Interventional Cardiology
DX: E78.2 Mixed hyperlipidemia (principal)
CPT/HCPCS: 36415; 80061; 84450; 84460

== ENCOUNTER → 2022-06-13 | Outpatient (CLI) | payer MEDICARE, OTHER ==
[2022-06-14 01:15] LABS: HCT 45.6 % (39.6-50.0); HGB 15.9 g/dL (13.0-17.0); MCH 31.2 pg (27.0-32.0); MCHC 34.9 g/dL (32.0-37.0); MCV 89.6 fL (80.0-97.0); NRBC Per 100 WBC 0 /100 WBCS (0.0-0.0); Platelet Count 209 X 10*3/uL (140-440); RBC 5.09 X 10*6/uL (4.40-5.60); WBC 8.31 X 10*3/uL (4.50-10.00)
[2022-06-14 01:17] LABS: African American GFR (CKD) 109.2 (60.0-200.0); Anion Gap 11.5 mmol/L (10.00-18.00); BUN/Creat Ratio 11.39 Ratio (12.00-20.00); Calcium 9.5 mg/dL (8.7-10.3); Carbon Dioxide 28.8 mmol/L (20.0-27.5); Non-African American GFR(CKD) 94.2 (60.0-200.0); Potassium 4.9 mmol/L (3.5-5.5)
== END | disposition home or self-care (01) ==
LOC: LABWHC1 16:19
PROVIDERS: ATTEND Internal Medicine Interventional Cardiology
DX: D64.9 Anemia, unspecified (principal)
CPT/HCPCS: 36415; 80048; 85027

== ENCOUNTER → 2022-06-20 | Outpatient (CLI) | payer MEDICARE, OTHER ==
[2022-06-20 19:25] LABS: T4, Free (Free Thyroxine) 1.03 ng/dL (0.800-1.800)
[2022-06-21 01:58] LABS: Hepatitis A Antibody IgM Nonreactive (Nonreactive); Hepatitis B Core IgM Nonreactive (Nonreactive); Hepatitis B Surface Antigen Nonreactive (Nonreactive); Hepatitis C IgG Antibody Nonreactive (Nonreactive)
== END | disposition home or self-care (01) ==
LOC: LABWHC1 13:21
PROVIDERS: ATTEND Internal Medicine
DX: R53.1 Weakness (principal); R73.9 Hyperglycemia, unspecified; R74.01 Elevation of levels of liver transaminase levels
CPT/HCPCS: 36415; 80074; 82306; 82607; 83036; 84075; 84439; 84443; 84450; 84460; 85652; 86038

== ENCOUNTER → 2022-09-14 | Outpatient (CLI) | payer MEDICARE, OTHER | END | disposition home or self-care (01) | LOC: LABWHC1 15:25 | PROVIDERS: ATTEND Internal Medicine | DX: E11.9 Type 2 diabetes mellitus without complications (principal); E55.9 Vitamin D deficiency, unspecified | CPT/HCPCS: 36415; 82306; 83036 ==

== ENCOUNTER → 2022-10-06 | Outpatient (CLI) | payer MEDICARE, OTHER ==
[2022-10-06 10:53] LABS: African American GFR (CKD) >90 (>60 ml/min/1.73 sqM); Blood Urea Nitrogen 13 mg/dL (9-20); Non-African American GFR(CKD) >90 (>60 ml/min/1.73 sqM)
--- NOTE | 2022-10-06 13:34 | CT ---
EXAMINATION TYPE: CT abdomen pelvis w con DATE OF EXAM: 10/06/2022 COMPARISON: 10/05/2021 HISTORY: colon ca CT DLP: 1820 mGycm Automated exposure control for dose reduction was used. TECHNIQUE: Helical acquisition of images was performed from the lung bases through the pelvis. CONTRAST: Performed with Oral Contrast and with IV Contrast, patient injected with 70 mL of Isovue 300. FINDINGS: The lung bases are clear. The gallbladder is normal without gallstones or biliary ductal dilatation. No focal masses are seen w ithin the liver, pancreas, spleen or adrenal glands and there is no organomegaly. Kidneys excrete contrast promptly and symmetrically and there is no solid renal mass or hydronephrosi s. There is no retroperitoneal adenopathy or hemorrhage in the caliber the abdominal aorta is normal. There is surgical resection of the ascending colon. There is no bowel dilatation to suggest obstructi on and there are no inflammatory changes within the bowel wall or mesentery. There is no free intrape ritoneal air or fluid. There is no pelvic mass, free fluid, abscess or adenopathy. There is mild prostatic hypertrophy with mild prosthetic calcification. There are a few small sclerotic densities N T9 and a few scattered within the pelvis including the ri ght iliac bone and bilateral pubic bones. These are stable compared to previous and possibly represen t bone islands. The possibility metastatic disease is considered less likely. Bone scan would be usef for further evaluation. IMPRESSION: 1. Postsurgical changes of right ascending colectomy. 2. A few scattered small sclerotic densities within the visualized skeleton is described above all of which are stable compared to the previous study dating back to 03/20/2021. A bone scan would be usefu l to definitively exclude metastatic disease. 3. No other significant abnormalities within the abdomen or pelvis.
== END | disposition home or self-care (01) ==
LOC: RADCTMAIN 09:11
PROVIDERS: ATTEND Internal Medicine Hematology & Oncology
DX: C18.4 Malignant neoplasm of transverse colon (principal); M89.8X8 Other specified disorders of bone, other site; B37.49 Other urogenital candidiasis; L03.314 Cellulitis of groin; Z71.3 Dietary counseling and surveillance; Z98.890 Other specified postprocedural states
CPT/HCPCS: 82565; 84520; 74177; 36415; Q9967

== ENCOUNTER → 2023-10-15 | Outpatient (CLI) | payer MEDICARE, OTHER ==
[2023-10-15 17:12] LABS: African American GFR (CKD) >90 (>60 ml/min/1.73 sqM); Blood Urea Nitrogen 12 mg/dL (9-20); Non-African American GFR(CKD) >90 (>60 ml/min/1.73 sqM)
--- NOTE | 2023-10-15 20:20 | CT ---
EXAMINATION TYPE: CT abdomen pelvis w con CT DLP: 3488.8 mGycm, Automated exposure control for dose reduction was used. DATE OF EXAM: 10/15/2023 6:45 PM COMPARISON: CT abdomen pelvis most recent from 10/06/2022. CLINICAL INDICATION:Male, 58 years old with history of C18.4 MALIGNANT NEOPLASM OF TRANSVERSE COLON; Colon Ca. TECHNIQUE: Axial CT abdomen pelvis w con;Sagittal and coronal reformats were created on a separate w orkstation. Contrast used:100 mL of Isovue 300 with IV Contrast, (none if empty) Oral contrast used: with Oral Contrast (none if empty) FINDINGS: LOWER CHEST: Unremarkable ABDOMEN LIVER: Diffusely hypoattenuating parenchyma. GALLBLADDER AND BILE DUCTS: Unremarkable. PANCREAS: Unremarkable. SPLEEN: Unremarkable. ADRENAL GLANDS: Unremarkable. KIDNEYS AND URETERS: No evidence of hydronephrosis or renal calculus. The ureters are unremarkable. PELVIS BLADDER: Unremarkable REPRODUCTIVE: Coarse calcifications of the prostate gland are identified. ABDOMEN & PELVIS STOMACH AND BOWEL: No evidence of bowel obstruction. Scattered colonic diverticula. Postsurgical mendoza ges to the colon without evidence for lymphadenopathy or recurrence. PERITONEUM/RETROPERITONEUM: No evidence of pneumoperitoneum or free fluid. VASCULATURE: No evidence of aortic aneurysm. MUSCULOSKELETAL: No acute osseous abnormalities, likely sequela of prior injury to the right iliac cr est near the insertion of the gluteus medius. LYMPH NODES: No gross evidence for lymphadenopathy. SOFT TISSUE/ABDOMINAL WALL: Unremarkable fat-containing inguinal hernias. IMPRESSION: No evidence for recurrence. No lymphadenopathy.
== END | disposition home or self-care (01) ==
LOC: RADCTMAIN 16:22
PROVIDERS: ATTEND Internal Medicine Hematology & Oncology
DX: C18.4 Malignant neoplasm of transverse colon (principal); B37.49 Other urogenital candidiasis; L03.314 Cellulitis of groin; Z71.3 Dietary counseling and surveillance
CPT/HCPCS: 82565; 84520; 74177; 36415; Q9967

== ENCOUNTER → 2024-10-16 | Outpatient (CLI) | payer MEDICARE, OTHER ==
[2024-10-16 13:38] LABS: African American GFR (CKD) >90 (>60 ml/min/1.73 sqM); Blood Urea Nitrogen 15 mg/dL (9-20); Non-African American GFR(CKD) 88 (>60 ml/min/1.73 sqM)
--- NOTE | 2024-10-16 15:17 | CT ---
EXAMINATION TYPE: CT abdomen pelvis w con DATE OF EXAM: 10/16/2024 COMPARISON: 10/15/2023 CLINICAL INDICATION: Male, 59 years old with history of C18.4 COLON CANCER; [facility], follow up for colon CA, hx of colon resection, ill650/100ml injected w/oral. TECHNIQUE: Performed with Oral Contrast and with IV Contrast, patient injected with 100ml mL of Isovue 300. CT DLP: 2447.[address] CTDI: mGy Automated exposure control for dose reduction was used. FINDINGS: The lung bases are clear. The gallbladder is normal without distention, wall thickening, pericholecystic fluid or gallstones. T here is no biliary ductal dilatation. There is no focal mass or organomegaly involving the liver, pancreas, spleen or adrenal glands. There is no solid renal mass or hydronephrosis and there is homogeneous contrast enhancement of the r enal parenchyma. The caliber the abdominal aorta is normal is no retroperitoneal adenopathy or hemorr emelia. The bowel loops are normal in caliber and there is no evidence of dilatation or obstruction. No infla mmatory changes are identified in the bowel wall or mesentery. There are surgical sutures in the joy sverse colon consistent with the history of colon tumor resection. There is no free intraperitoneal a ir or fluid. No pelvic mass, free fluid, abscess or adenopathy. The osseous structures and soft tissues are intact. IMPRESSION: No evidence of recurrent or metastatic disease. No interval change compared to the prior study dated 10/15/2023 [facility], Workstation: [facility], 10/16/2024 3:15 PM
== END | disposition home or self-care (01) ==
LOC: RADCTMAIN 12:53
PROVIDERS: ATTEND Internal Medicine Hematology & Oncology
DX: C18.4 Malignant neoplasm of transverse colon (principal)
CPT/HCPCS: 82565; 84520; 74177; 36415; Q9967